=== PATIENT | male | born 1935 | race Caucasian/White ===

== ENCOUNTER → 2018-02-06 10:38 | Outpatient (CLI) | payer MEDICARE, OTHER, SELFPAY ==
[2018-02-06 12:05] LABS: Creatinine Urine Random 258.4 mg/dL
[2018-02-06 12:09] LABS: Microalbumi Creatinin Ratio Ur 21.2 ug/mg CR (<30); Microalbumin Urine Random 5.5 mg/dL (0-1.6)
[2018-02-06 12:19] LABS: Add Manual Diff / Slide Review NO; Basophils Percent Auto 0.6 % (0-2); Eosinophils Percent Auto 4.7 % (2-4); Hemoglobin 15.8 g/dL (13.5-17.5); Lymphocytes Percent Auto 36.6 % (25-40); Mean Corpuscular Hemoglobin 32.3 PG (26-34); Mean Corpuscular Volume 92.1 fL (80-100); Monocytes Percent Auto 7.3 % (3-14); Neutrophils Absolute Auto 3100 /uL (3000-5900); Neutrophils Percent Auto 50.8 % (50-75); Platelet Count 153 X10^3/uL (150-400); Red Blood Cell Count 4.88 X10^6/uL (4.5-5.9); Red Cell Distribution Width 13.5 % (11.6-14.8); White Blood Cell Count 6.2 X10^3/uL (4.5-11.0)
[2018-02-06 12:49] LABS: Alanine Aminotransferase 30 IU/L (21-72); Albumin 4.1 g/dL (3.5-5.0); Albumin Globulin Ratio 1.4 (1.0-2.8); Alkaline Phosphatase 48 U/L (38-126); Aspartate Aminotransferase 24 IU/L (17-59); Bilirubin Total 1.3 mg/dL (0.2-1.3); Blood Urea Nitrogen 18 mg/dL (9-20); Calcium 9.3 mg/dL (8.4-10.2); Carbon Dioxide 30 mmol/L (22-32); Chloride 100 mmol/L (98-107); Cholesterol 120 mg/dL (140-199); Estimated Glomerular Filt Rate > 60.0 mL/min (>60); Glucose 211 mg/dL (80-110); HDL Cholesterol 36 mg/dL (40-60); HEMOLYSIS 16 (0-50); Hemoglobin A1C% w Est Avg Glu 7.9 % (4.0-6.0); LDL Cholesterol Calculated 43 mg/dL (<100); Potassium 4.1 mmol/L (3.4-5.1); Sodium 142 mmol/L (137-145); Total Protein 7.1 g/dL (6.3-8.2); Triglycerides 206 mg/dL (35-150)
== END ==
PROVIDERS: Family Provider Family Medicine; PCP Family Medicine; Visit Provider Family Medicine
DX: I10 Essential (primary) hypertension (principal); E11.9 Type 2 diabetes mellitus without complications; E78.00 Pure hypercholesterolemia, unspecified
CPT/HCPCS: 36415; 80053; 80061; 82043; 82570; 83036; 85025

== ENCOUNTER → 2018-07-27 15:38 | Outpatient (CLI) | payer MEDICARE, OTHER, SELFPAY ==
[2018-07-27 16:30] LABS: BUN Creatinine Ratio 21.1 (6-22); Blood Urea Nitrogen 19 mg/dL (9-20); Calcium 9.6 mg/dL (8.4-10.2); Carbon Dioxide 28 mmol/L (22-32); Chloride 101 mmol/L (98-107); Estimated Glomerular Filt Rate > 60.0 mL/min (>60); Glucose 166 mg/dL (80-110); HEMOLYSIS < 15 (0-50); Potassium 4.2 mmol/L (3.4-5.1); Sodium 143 mmol/L (137-145)
[2018-07-27 17:37] LABS: Vitamin D 25 Hydroxy (D3) 59.6 ng/mL (30.0-100.0)
== END ==
PROVIDERS: Visit Provider Student in an Organized Health Care Education/Training Program
DX: E11.9 Type 2 diabetes mellitus without complications (principal); E55.9 Vitamin D deficiency, unspecified; I10 Essential (primary) hypertension
CPT/HCPCS: 36415; 80048; 82306; 83036

== ENCOUNTER → 2019-01-25 13:34 | Outpatient (CLI) | payer MEDICARE, OTHER, SELFPAY ==
[2019-01-25 14:55] LABS: Add Manual Diff / Slide Review NO; Basophils Absolute Auto 0 /uL (0-100); Basophils Percent Auto 0.8 % (0-2); Eosinophils Absolute Auto 300 /uL (0-450); Eosinophils Percent Auto 5.5 % (2-4); Hematocrit 42.6 % (41-53); Hemoglobin 14.9 g/dL (13.5-17.5); Lymphocytes Absolute Auto 1800 /uL (1100-4500); Lymphocytes Percent Auto 29.7 % (25-40); Mean Corpuscular Hemoglobin 32.7 PG (26-34); Mean Corpuscular Volume 93.4 fL (80-100); Monocytes Absolute Auto 400 /uL (0-900); Monocytes Percent Auto 7.1 % (3-14); Neutrophils Absolute Auto 3500 /uL (1500-7000); Neutrophils Percent Auto 56.9 % (50-75); Platelet Count 169 X10^3/uL (150-400); Red Blood Cell Count 4.56 X10^6/uL (4.5-5.9); Red Cell Distribution Width 14.1 % (11.6-14.8); White Blood Cell Count 6.1 X10^3/uL (4.5-11.0)
[2019-01-25 15:06] LABS: Alanine Aminotransferase 23 IU/L (21-72); Albumin 4.4 g/dL (3.5-5.0); Albumin Globulin Ratio 1.4 (1.0-2.8); Alkaline Phosphatase 50 U/L (38-126); Aspartate Aminotransferase 20 IU/L (17-59); BUN Creatinine Ratio 17.5 (6-22); Bilirubin Total 0.9 mg/dL (0.2-1.3); Blood Urea Nitrogen 14 mg/dL (9-20); Calcium 9.6 mg/dL (8.4-10.2); Carbon Dioxide 29 mmol/L (22-32); Chloride 99 mmol/L (98-107); Creatine Kinase 39 U/L (55-170); Estimated Glomerular Filt Rate > 60.0 mL/min (>60); Globulin 3.1 g/dL (1.7-4.1); Glucose 267 mg/dL (80-110); HEMOLYSIS 17 (0-50); Potassium 4.4 mmol/L (3.4-5.1); Sodium 140 mmol/L (137-145); Total Protein 7.5 g/dL (6.3-8.2)
[2019-01-25 15:09] LABS: Hemoglobin A1C% w Est Avg Glu 6.5 % (4.0-6.0)
[2019-01-25 16:05] LABS: Creatinine Urine Random 87.7 mg/dL
[2019-01-25 16:08] LABS: Microalbumi Creatinin Ratio Ur 15.9 ug/mg CR (<30); Microalbumin Urine Random 1.4 mg/dL (0-1.6)
== END ==
PROVIDERS: PCP Student in an Organized Health Care Education/Training Program; Visit Provider Student in an Organized Health Care Education/Training Program
DX: E11.9 Type 2 diabetes mellitus without complications (principal); R10.9 Unspecified abdominal pain
CPT/HCPCS: 36415; 80053; 82043; 82550; 82570; 83036; 85025

== ENCOUNTER → 2019-02-06 15:32 | Outpatient (CLI) | payer MEDICARE, OTHER, SELFPAY ==
--- NOTE | 2019-02-06 15:35 | DI.CT.S_ITS ---
PROCEDURE: CT ABDOMEN PELVIS WO CON INDICATIONS: Flank pain TECHNIQUE: Noncontrast 5 mm thick sections acquired from the diaphragms to the symphysis. 5 mm thick coronal and sagittal reformats were then performed. For radiation dose reduction, the following was used: automated exposure control, adjustment of mA and/or kV according to patient size. COMPARISON: None. FINDINGS: Image quality: Excellent. Lung bases: Lung bases are clear. Heart size is normal. Coronary artery calcifications. Urinary system: Both kidneys are normal in size. Several small nonobstructing renal catheter bilaterally. A cluster of stones at the inferior pole the kidney measures 1.1 cm, (2/33), and the largest on the right are punctate. No hydronephrosis. A left kidney peripelvic cyst measuring of 4.8 cm, (2/). Both ureters appear non-dilated throughout their expected courses. Bladder wall thickness is normal; no calcified bladder stones. Few phleboliths in the pelvis. Other solid organs: Liver is normal in size. Simple cyst in the left lobe. Gallbladder is unremarkable. No calcified gallstones. Pancreas is normal in contours. Spleen is normal in size. No adrenal nodules. Peritoneum and bowel: Unenhanced bowel loops demonstrate normal wall thickness and caliber. Moderate sigmoid colon diverticulosis. The appendix is normal. No free fluid or air. Nodes and vessels: No retroperitoneal or mesenteric adenopathy by size criteria. Aorta and inferior vena cava are normal in caliber. Moderate calcified atherosclerotic plaque. Abdominal wall: No ventral hernias. Pelvis: No free pelvic fluid. Fat containing left inguinal hernia. Bones: No suspicious bony lesions. No vertebral body compression fractures. Mild scoliosis and moderate DDD. IMPRESSION: 1. No abnormality identified to explain the patient's flank pain. No acute inflammatory process. 2. Nonobstructing calculi bilaterally. 3. Incidental left peripelvic cyst. Dictated by: Luis Ayala M.D. on 02/06/2019 at 16:25 Approved by: Luis Ayala M.D. on 02/06/2019 at 16:37
== END ==
PROVIDERS: PCP Student in an Organized Health Care Education/Training Program; Visit Provider Student in an Organized Health Care Education/Training Program
DX: R10.9 Unspecified abdominal pain (principal); N20.0 Calculus of kidney; N28.1 Cyst of kidney, acquired
CPT/HCPCS: 74176

== ENCOUNTER 2019-02-13 10:50 | Emergency (ER) | payer MEDICARE, OTHER, SELFPAY ==
--- NOTE | 2019-02-13 10:58 | ED.BACK ---
HPI - Back Pain/Injury General Chief Complaint: Urogenital-Male Stated Complaint: pain around kidney area Time Seen by Provider: 02/13/19 10:58 Source: patient and family Mode of arrival: ambulatory Limitations: no limitations History of Present Illness HPI Narrative: Patient comes emergency department complaining of low back pain. This has been going on for the past couple of months, and patient has actually been seen by his primary care physician for this. He states that he had blood work and a CT recently, and that the pain just does not seem to be going away. Patient states he is just taking ibuprofen at home for this. He denies any fevers or chills. No recent fall or other injury. He denies any change in the character of pain. No abdominal pain. No nausea or vomiting. No chest pain or shortness of breath. Patient states that he does not feel ill necessarily. No other complaints at this time. No numbness or tingling in the patient's legs. No lower extremity weakness. Related Data Previous Rx's Medication Instructions Recorded folic acid 1 mg PO QDAY #90 tab 06/29/17 dabigatran etexilate 150 mg capsule 150 mg PO BID #370 cap 10/09/18 glipizide ER 5 mg tablet, extended 5 mg PO QDAY #185 tab 10/09/18 release 24 hr lisinopril 2.5 mg tablet 2.5 mg PO HS #185 tab 10/09/18 metformin 500 mg tablet 1,000 mg PO BIDCC #730 tab 10/09/18 metoprolol succinate ER 50 mg 50 mg PO BID #370 tab 10/09/18 tablet,extended release 24 hr atorvastatin 20 mg tablet 10 mg PO QHS 90 Days #45 tab 01/25/19 lovastatin 20 mg tablet 20 mg PO QPM #90 tab 01/25/19 hydrocodone-acetaminophen 1 tab PO Q6H PRN #14 tab 02/13/19 methylprednisolone [Medrol ([place])] See Rx Instructions .ROUTE 02/13/19 .COMPLEX #21 each Allergies Allergy/AdvReac Type Severity Reaction Status Date / Time No Known Drug Allergies Allergy Verified 02/13/19 11:03 Review of Systems Constitutional Denies chills, Denies fever(s), Denies lethargy and Denies weakness Eyes Denies change in vision, Denies eye discharge, Denies irritation and Denies loss of vision ENT Ears, Nose, Mouth, and Throat: Denies change in voice, Denies neck pain and Denies sore throat Cardiovascular Denies chest pain, Denies irregular heart rhythm, Denies lightheadedness, Denies palpitations, Denies dyspnea, Denies dyspnea on exertion and Denies orthopnea Respiratory Denies cough, Denies dyspnea, Denies dyspnea on exertion and Denies wheezing Gastrointestinal Gastrointestinal: Denies abdominal pain, Denies change in bowel habits, Denies diarrhea, Denies nausea and Denies vomiting Genitourinary Denies hematuria, Denies flank pain, Denies urinary incontinence and Denies urinary urgency Musculoskeletal Reports back pain and Denies neck pain Integumentary/Breasts Denies pruritus, Denies erythema, Denies rash and Denies wounds Neurologic Denies confusion, Denies loss of vision and Denies weakness Psychiatric Denies anxiety, Denies confusion, Denies depression, Denies homicidal ideation and Denies suicidal ideation Endocrine Denies palpitations Hematologic/Lymphatic Denies easy bruising Allergic/Immunologic Denies wheezing [facility] Medical History Atrial fibrillation (Chronic Unknown) Stroke (Resolved Unknown) Hearing loss (Chronic Unknown) Cataracts, bilateral (Chronic Unknown) Diabetes (Chronic Unknown) Hyperlipemia (Chronic Unknown) Hypertension (Chronic Unknown) Essential hypertension (Chronic 07/18/16) History of stroke (Chronic 07/18/16) Pure hypercholesterolemia (Chronic 07/18/16) Chronic atrial fibrillation (Chronic 11/01/16) Type 2 diabetes mellitus without complication, without long-term current use of insulin (Chronic 02/09/17) Surgical History No history of previous surgery (Chronic) Family History Mother No problems noted. Social History Smoking Status: Current every day smoker Family History Mother No problems noted. Social History Smoking Status: Current every day smoker Exam Initial Vital Signs Initial Vital Signs: Vital Signs Temperature 97.7 F 02/13/19 11:03 Pulse Rate 91 H 02/13/19 11:03 Respiratory Rate 20 02/13/19 11:03 Blood Pressure 123/81 02/13/19 11:03 Pulse Oximetry 100 02/13/19 11:03 Const General: cooperative and well developed Nutritional Appearance: well nourished Orientation: alert, awake, oriented x3 and not confused [facility] Head: normocephalic and atraumatic Ears: external ears normal Nose: external nose normal and No nasal discharge Face and sinus: face symmetric and No dry mucous membranes Mouth: oral mucosae normal and moist mucous membranes Teeth and gingiva: dentition normal Eyes General: appearance normal, both eyes and all related structures Eyelids: eyelids normal Conjunctivae: conjunctivae normal Sclera: sclerae normal Pupils: PERRL EOM: EOM intact bilaterally Neck Neck: normal visual inspection, trachea midline, No lymphadenopathy, No midline deformity and No JVD Lymphatic: No lymphedema Chest Chest: normal inspection of the chest Resp Effort & Inspection: normal respiratory effort, able to speak in complete sentences, no respiratory distress and no use of accessory muscles Auscultation: clear to auscultation bilaterally, no rales, no rhonchi and no wheezes Cardio Rate: regular rate Rhythm: regular rhythm Heart Sounds: no click, no gallops, no murmurs and no rubs Pulses: normal peripheral pulses GI Inspection: non-distended Palpation: soft, no hepatosplenomegaly, No guarding, No pulsatile mass and No tender Auscultation: normal bowel sounds Back/Spine/Pelvis Back: No CVA tenderness Cervical Spine: cervical ROM normal and No pain with cervical ROM Thoracic/Lumbar Spine: thoracic and lumbar spine normal to inspection Other: Patient has mild bilateral lumbar paraspinal muscular tenderness. Skin General: no rashes or lesions noted, No jaundice and No petechiae Neuro General: alert, oriented x3, gait normal and no focal motor deficits Speech: speech normal Extrem General: full ROM, no clubbing, cyanosis or edema, no pedal edema and no calf tenderness Psych Appearance: well kempt Mental Status: mental status grossly normal Attitude: cooperative Thought Content: normal and suicidality Judgment: judgment good Course Course Narrative: I reviewed the patient's records, and found that the patient had an unremarkable CT scan of the abdomen and pelvis on February 06, and that labs about 2 weeks before that were also unremarkable, other than an elevated glucose. I discussed with the patient that the next step in the workup would be an MRI of his low spine. The patient states that he gets very claustrophobic an MRI, and I discussed with him that he will need to talk to his doctor about having some kind of sedation for the procedure then. I have discussed with the patient that there is no indication for an emergent MRI today. The patient could most likely use more aggressive pain management at home, and we have discussed this possibility. Patient has been given doses of Toradol, prednisone, and Vicodin in the emergency department. His granddaughter is with him to drive him home. The patient is able to stand without difficulty and ambulates slowly but steadily. At his granddaughter's request, I will prescribed a walker for him so that he is able to get around with a little more support. Granddaughter has also asked for handicap does ignition, but I have explained to her that his primary care physician will need to do this for him. We have called Dr. Fairbanks is office, and the patient has been given an appointment for 05 29 tomorrow morning, for follow-up of the above issues. Orders Ordered: Discontinued Medications Hydrocodone Bitart/Acetaminophen ([place] 5/325) 1 tab PO NOW ONE Stop: 02/13/19 11:17 Ketorolac Tromethamine (Toradol) 60 mg IM NOW ONE Stop: 02/13/19 11:17 Prednisone (Deltasone) 60 mg PO NOW ONE Stop: 02/13/19 11:17 Vital Signs - 8 hr 02/13/19 11:03 Temperature 97.7 F Pulse Rate 91 H Respiratory Rate 20 Blood Pressure 123/81 Pulse Oximetry 100 MDM - Back Pain/Injury Medical Records Attestation: I reviewed the patient's medical records. Discharge Plan Departure Patient Disposition: Home Clinical Impression: Acute exacerbation of chronic low back pain Instructions: DI for Low Back Pain Activity Restrictions/Additional Instructions: Your labs and CT scan were unremarkable. The next step in workup of a problem like this would be an MRI of your spine. We have contacted your primary doctor's office, and made an appointment for you for tomorrow morning at 10:15 a.m.. You can discuss with them the possibility of getting an MRI with sedation, if needed, and also, the issue of possibly getting a handicap parking pass. Please take the medications prescribed, as needed for pain. Prescriptions: New hydrocodone-acetaminophen 5-325 mg tablet 1 tab PO Q6H PRN (Reason: pain) Qty: 14 RF: 0 methylprednisolone [Medrol ([place])] 4 mg tablets,dose pack See Rx Instructions .ROUTE .COMPLEX Qty: 21 RF: 0 No Action folic acid 1 MG tablet 1 mg PO QDAY Qty: 90 RF: 3 Pradaxa 150 mg capsule 150 mg PO BID Qty: 370 RF: 0 glipizide [Glucotrol XL] 5 mg tablet extended release 24hr 5 mg PO QDAY Qty: 185 RF: 0 lisinopril 2.5 mg tablet 2.5 mg PO HS Qty: 185 RF: 0 metformin [Glucophage] 500 mg tablet 1,000 mg PO BIDCC Qty: 730 RF: 0 metoprolol succinate 50 mg tablet extended release 24 hr 50 mg PO BID Qty: 370 RF: 0 lovastatin 20 mg tablet 20 mg PO QPM Qty: 90 RF: 1 atorvastatin [Lipitor] 20 mg tablet 10 mg PO QHS 90 Days Qty: 45 RF: 0 Referrals: Luis Woodard MD [Primary Care Provider] - (Please come for your 10:15 appointment tomorrow morning to Dr. Woodard's office.)
[2019-02-13 11:03] VITALS: BP 123/81; PULSE 91; RESP 20; TEMP 36.5; O2SAT 100; BMI 28.8
--- NOTE | 2019-02-13 11:12 | PC.NURSE ---
pt describes jah mid to lower back pain.
[2019-02-13] MEDS: KETOROLAC 60 MG/2 ML VIAL IM (11:30)
[2019-02-13] MEDS: HYDROCODONE/ACET 5/325 TABLET 1 TAB PO (11:30)
[2019-02-13] MEDS: predniSONE 20 MG TABLET 60 MG PO (11:31)
[2019-02-13 12:28] VITALS: BP 94/61; PULSE 73; RESP 18; O2SAT 98
== END 2019-02-13 12:28 | disposition home or self-care (01) ==
PROVIDERS: Emergency Provider Emergency Medicine; PCP Student in an Organized Health Care Education/Training Program
DX: M54.5 Low back pain (principal)
CPT/HCPCS: 96372; 99282; 99283; J1885

== ENCOUNTER 2019-02-27 09:30 | Outpatient (RCR) | payer MEDICARE, OTHER, SELFPAY ==
--- NOTE | 2019-02-20 09:30 | PT.OPPOC ---
Current Diagnoses Other chronic pain (02/20/19) Stiffness of unspecified joint, not elsewhere classified (02/20/19) Low back pain (02/20/19) Weakness (02/20/19) Provider Visit Care Team Role Provider Type Luis Woodard MD Attending Provider Physician Primary Care Provider Specialty: Internal Medicine Address: [address] [place] [address], [id number] Email: Plan Of Care PT-OP-T Assessment and Plan Start: 02/20/19 08:06 Freq: Status: Active Protocol: Document 02/20/19 09:30 SAK (Rec: 02/24/19 16:42 SAK [id number]) Physical Therapy Assessment Rehab Potential Rehabilitation Potential Good Evaluation Complexity Number of Personal Factors/Comorbidities 1-2 Number of Body Systems Impaired 3 Clinical Presentation at Evaluation Evolving Impairments Impairments Activity Tolerance Pain ROM Strength Other Concerns Barriers to Rehabilitation patient CITIZEN [place], has PMH of DMII and CVA Goals 3 Impairment activity tolerance Short Term Goal (STG) Patient will be able to resume daily household activities without an increase in pain STG Duration 04/23/19 Transportation Maintenance Worker Goal (LTG) Patient will be able to resume gardening without an increase in pain LTG Duration 04/23/19 2 Impairment decreased flexibility and strength jah core and hips Short Term Goal (STG) Patient will be instructed in a HEP to address above impairments STG Duration 03/23/19 [facility] Goal (LTG) Patient will be independent and compliant with HEP and demonstrate improvements in flexibility and strength LTG Duration 04/23/19 1 Impairment pain 6/10 Short Term Goal (STG) Decrease pain to no greater than 4/10 STG Duration 03/23/19 Transportation Maintenance Worker Goal (LTG) Decrease pain to no greater than 2/10 LTG Duration 04/23/19 Assessment Summary Assessment Patient presents with function -limiting pain bilateral hips and low back concentrated primarily in superior aspect of his iliac crests. He has significant weakness and decreased flexibility throughout his trunk and hips which appears to be highly contributory. He reported decrease in pain with the use of moist heat today and his grandaughter stated she would help him obtain a new heating pad to try at home. I started him on a few exercises for gentle ROM and flexibility and issued a written handout. He would benefit from skilled physical therapy to address his impairments through therapeutic exercise, modalities and manual therapy as indicated for pain management. Physical Therapy Plan Frequency and Duration Frequency of Treatment 2x/Week Duration of Treatment 8 Plan of Care Start Date 02/20/19 Plan of Care End Date 04/23/19 Therapeutic Interventions Therapeutic Interventions Aquatic Therapy Home Exercise Program Manual Therapy Patient/Caregiver Education Self-Care/Home Management Soft Tissue Mobilization Taping Therapeutic Activities Therapeutic Exercises Modalities Cold Pack/Ice Massage Electric Stimulation Hot Packs Traction- Mechanical Ultrasound Next Visit Focus/Plan Next Note Type Treatment Note Next Visit Plan Review HEP, progress therapeutic exercise program for flexibility and strengthening, and end with moist heat. Plan of Care Dates Plan of Care Start Date 02/20/19 Plan of Care End Date 04/23/19 Please Sign and Return: I have reviewed this Plan of Care and certify that the skilled therapy services above are required to meet the patient?s needs. Physician Signature Date Printed Name and Credentials Clinical Instructor Signature Printed Name and Credentials
--- NOTE | 2019-02-20 09:30 | PT.OIE ---
Current Diagnoses Other chronic pain (02/20/19) Stiffness of unspecified joint, not elsewhere classified (02/20/19) Low back pain (02/20/19) Weakness (02/20/19) Past Medical History (Last Reviewed 02/13/19 @ 11:20 by Gwen Villafana MD) Atrial fibrillation (Chronic Unknown) Stroke (Resolved Unknown) Hearing loss (Chronic Unknown) Cataracts, bilateral (Chronic Unknown) Diabetes (Chronic Unknown) Hyperlipemia (Chronic Unknown) Hypertension (Chronic Unknown) Essential hypertension (Chronic 07/18/16) History of stroke (Chronic 07/18/16) Pure hypercholesterolemia (Chronic 07/18/16) Chronic atrial fibrillation (Chronic 11/01/16) Type 2 diabetes mellitus without complication, without long-term current use of insulin (Chronic 02/09/17) Past Surgical History (Last Reviewed 02/13/19 @ 11:20 by Gwen Villafana MD) No history of previous surgery (Chronic) Provider Visit Care Team Role Provider Type Luis Woodard MD Attending Provider Physician Primary Care Provider Specialty: Internal Medicine Address: [address] [place] [address] Email: Physical Therapy Initial Evaluation PT-OP-A Visit Information Start: 02/20/19 08:06 Freq: Status: Active Protocol: Document 02/20/19 09:30 [facility] (Rec: 02/22/19 09:28 [facility] [id number]) Out-Patient Physical Therapy Visit Information Visit Information Visit Type Initial Evaluation Visit Start Time 09:30 Visit Stop Time 10:25 Total Visit Minutes 55 Visit Number 1 Number of ONCOLOGY COORDINATOR Visits 0 PT-OP-B Current Condition Start: 02/20/19 08:06 Freq: Status: Active Protocol: Document 02/20/19 09:30 [facility] (Rec: 02/22/19 09:28 [facility] [id number]) Current Condition History of Current Condition Onset Date 2 months Current Complaints bilateral lateral hip pain History of Current Condition Presents to PT with function- limiting pain bilateral lateral hips, no known fall or other trauma. No imaging studies. Reports gradual onset of pain but due to pain at this time reports I can't do anything. Patient lives alone and typically able to perform housework and yardwork without pain. At this time reports increased pain with movement, decreases some with rest and Tylenol. Treatment Goals Patient/Caregiver Goals Decrease pain to allow him to perform his usual daily activities including housework and yardwork. Prior Functional Status Baseline Function- ADL's Independent Baseline Function- Mobility Independent Baseline Function- Gait independent no device. Personal Factors Other Personal Factors That May Effect Patient doesn't do any regular Therapy/Recovery exercises. PT-OP-C Subjective Start: 02/20/19 08:06 Freq: Status: Active Protocol: Document 02/20/19 09:30 [facility] (Rec: 02/24/19 16:42 [facility] [id number]) Patient Questionnaires Oswestry Low Back Index Oswestry Score 68 OP-PT Pain Assessment Pain Assessment Grid Paper Pain Assessment Grid Completed Yes Location bilateral hips and lumbar region Intensity 6 Description Aching Pressure Tender Tightness Pain Aggravating Factors ADL's Activity Pain Alleviating Factors Medication Home Pain Medication Use Pain Medications Used Yes Home Pain Medication Frequency q6hrs Pain Behaviors Pain Behaviors Facial Grimacing Guarding Wincing PT-OP-G Mobility & Gait Start: 02/20/19 08:06 Freq: Status: Active Protocol: Document 02/20/19 09:30 [facility] (Rec: 02/24/19 16:42 [facility] [id number]) OP Mobility Evaluation Bed Mobility Rolling independent but painful Supine to and from Sit independent but painful Transfers Sit to Stand independent but painful Functional Movements Lifting and Carrying not currently doing due to paion Squats painful Running Assessment unable OP Gait Assessment Gait Gait Assistance Required: Independent Distance (Feet) 100 Assistive Devices Assistive Device None Gait Deviations General Gait Pattern Decreased Stride Length Decreased Feet Clearance Flexed Trunk Lateral Trunk Lean Factors Limiting Gait Function Factors Limiting Gait Function Pain Stair Climbing Evaluation Evaluation Level of Assist On Stairs Independent Devices Stair Climbing Assistive Devices Left Railing Right Railing Technique/Endurance Stair Climbing Direction Ascend and Descend Stair Climbing Technique Step Over Step Comments Stair Climbing Comments c/o pain PT-OP-J Posture/Palpation/Skin Start: 02/20/19 08:06 Freq: Status: Active Protocol: Document 02/20/19 09:30 [facility] (Rec: 02/24/19 16:42 [facility] [id number]) Posture Evaluation Position Standing Head/C-Spine Posture Forward Head T-Spine Posture Increased Kyphosis L-Spine Posture Flattened Palpation Assessment Location greater trochanters Palpation Location jah denied pain bilateral lumbar paraspinals Palpation Findings Soft Tissue Tightness Tenderness PT-OP-K Range of Motion Start: 02/20/19 08:06 Freq: Status: Active Protocol: Document 02/20/19 09:30 [facility] (Rec: 02/24/19 16:42 [facility] [id number]) Lumbar Spine Range of Motion Lumbar Spine Active ROM Limitations Soft Tissue Tightness Pain Comments Moderate decrease all motions with c/o stiffness and pain Hip Goniometric Range of Motion Hip Left Hip ROM WFL No Testing Position Supine Flexion w/Knee Flexed 95 Straight Leg Raise 40 Extension 15 Abduction 20 Internal Rotation 50 right Hip ROM WFL No Testing Position Supine Flexion w/Knee Flexed 95 Straight Leg Raise 45 Extension 0 Abduction 15 Internal Rotation 10 External Rotation 45 Hip ROM Limitations Hip ROM Limitations Soft Tissue Tightness Comments mod tightness bilateral quadriceps and IT bands Knee Goniometric Range of Motion Knee jah Knee ROM WFL Yes Ankle and Foot Goniometric Range of Motion Ankle and Foot jah Dorsiflexion with Knee Flexed 0 PT-OP-M Strength Start: 02/20/19 08:06 Freq: Status: Active Protocol: Document 02/20/19 09:30 [facility] (Rec: 02/24/19 16:42 [facility] [id number]) Trunk Strength Trunk Manual Muscle Testing Testing Position Supine Flexion 3- Fair- Extension 3- Fair- Hip Strength Hip Manual Muscle Testing jah Flexion (L2) 4 Good Extension (S1) 3- Fair- Abduction 3+ Fair+ Adduction 3+ Fair+ External Rotation 3+ Fair+ Internal Rotation 4- Good- Comments c/o pain with all resisted motions Knee Strength Knee Manual Muscle Testing jah Flexion (S2) 4 Good Extension (L3) 4 Good PT-OP-Q Treatments Start: 02/20/19 08:06 Freq: Status: Active Protocol: Document 02/20/19 09:30 [facility] (Rec: 02/24/19 16:42 [facility] [id number]) Self-Care/Home Management Treatment Education Patient Education Home Exercise Program Pain Management Other Education issued written HEP PT-OP-R Modalities Start: 02/20/19 08:06 Freq: Status: Active Protocol: Document 02/20/19 09:30 [facility] (Rec: 02/24/19 16:42 [facility] [id number]) Hot Pack/Cold Pack Treatment Hot Pack Location lumbar paraspinals and hips Patient Position Hooklying Treatment Duration (minutes) 15 Patient Tolerance Good PT-OP-T Assessment and Plan Start: 02/20/19 08:06 Freq: Status: Active Protocol: Document 02/20/19 09:30 [facility] (Rec: 02/24/19 16:42 [facility] [id number]) Physical Therapy Assessment Rehab Potential Rehabilitation Potential Good Evaluation Complexity Number of Personal Factors/Comorbidities 1-2 Number of Body Systems Impaired 3 Clinical Presentation at Evaluation Evolving Impairments Impairments Activity Tolerance Pain ROM Strength Other Concerns Barriers to Rehabilitation patient LAC COURTE OREILLES, has PMH of DMII and CVA Goals 3 Impairment activity tolerance Short Term Goal (STG) Patient will be able to resume daily household activities without an increase in pain STG Duration 04/23/19 Snf Goal (LTG) Patient will be able to resume gardening without an increase in pain LTG Duration 04/23/19 2 Impairment decreased flexibility and strength jah core and hips Short Term Goal (STG) Patient will be instructed in a HEP to address above impairments STG Duration 03/23/19 Emergency Management Specialist Goal (LTG) Patient will be independent and compliant with HEP and demonstrate improvements in flexibility and strength LTG Duration 04/23/19 1 Impairment pain 6/10 Short Term Goal (STG) Decrease pain to no greater than 4/10 STG Duration 03/23/19 Emergency Management Specialist Goal (LTG) Decrease pain to no greater than 2/10 LTG Duration 04/23/19 Assessment Summary Assessment Patient presents with function -limiting pain bilateral hips and low back concentrated primarily in superior aspect of his iliac crests. He has significant weakness and decreased flexibility throughout his trunk and hips which appears to be highly contributory. He reported decrease in pain with the use of moist heat today and his grandaughter stated she would help him obtain a new heating pad to try at home. I started him on a few exercises for gentle ROM and flexibility and issued a written handout. He would benefit from skilled physical therapy to address his impairments through therapeutic exercise, modalities and manual therapy as indicated for pain management. Physical Therapy Plan Frequency and Duration Frequency of Treatment 2x/Week Duration of Treatment 8 Plan of Care Start Date 02/20/19 Plan of Care End Date 04/23/19 Therapeutic Interventions Therapeutic Interventions Aquatic Therapy Home Exercise Program Manual Therapy Patient/Caregiver Education Self-Care/Home Management Soft Tissue Mobilization Taping Therapeutic Activities Therapeutic Exercises Modalities Cold Pack/Ice Massage Electric Stimulation Hot Packs Traction- Mechanical Ultrasound Next Visit Focus/Plan Next Note Type Treatment Note Next Visit Plan Review HEP, progress therapeutic exercise program for flexibility and strengthening, and end with moist heat.
--- NOTE | 2019-02-24 16:44 | PT.OIE ---
Current Diagnoses Other chronic pain (02/20/19) Stiffness of unspecified joint, not elsewhere classified (02/20/19) Low back pain (02/20/19) Weakness (02/20/19) Past Medical History (Last Reviewed 02/13/19 @ 11:20 by Gwen Villafana MD) Atrial fibrillation (Chronic Unknown) Stroke (Resolved Unknown) Hearing loss (Chronic Unknown) Cataracts, bilateral (Chronic Unknown) Diabetes (Chronic Unknown) Hyperlipemia (Chronic Unknown) Hypertension (Chronic Unknown) Essential hypertension (Chronic 07/18/16) History of stroke (Chronic 07/18/16) Pure hypercholesterolemia (Chronic 07/18/16) Chronic atrial fibrillation (Chronic 11/01/16) Type 2 diabetes mellitus without complication, without long-term current use of insulin (Chronic 02/09/17) Past Surgical History (Last Reviewed 02/13/19 @ 11:20 by Gwen Villafana MD) No history of previous surgery (Chronic) Provider Visit Care Team Role Provider Type Luis Woodard MD Attending Provider Physician Primary Care Provider Specialty: Internal Medicine Address: [address] [place] [address] Email: Physical Therapy Initial Evaluation PT-OP-A Visit Information Start: 02/20/19 08:06 Freq: Status: Active Protocol: Document 02/20/19 09:30 [facility] (Rec: 02/22/19 09:28 [facility] [id number]) Out-Patient Physical Therapy Visit Information Visit Information Visit Type Initial Evaluation Visit Start Time 09:30 Visit Stop Time 10:25 Total Visit Minutes 55 Visit Number 1 Number of HEAD PASTRY CHEF Visits 0 PT-OP-B Current Condition Start: 02/20/19 08:06 Freq: Status: Active Protocol: Document 02/20/19 09:30 [facility] (Rec: 02/22/19 09:28 [facility] [id number]) Current Condition History of Current Condition Onset Date 2 months Current Complaints bilateral lateral hip pain History of Current Condition Presents to PT with function- limiting pain bilateral lateral hips, no known fall or other trauma. No imaging studies. Reports gradual onset of pain but due to pain at this time reports I can't do anything. Patient lives alone and typically able to perform housework and yardwork without pain. At this time reports increased pain with movement, decreases some with rest and Tylenol. Treatment Goals Patient/Caregiver Goals Decrease pain to allow him to perform his usual daily activities including housework and yardwork. Prior Functional Status Baseline Function- ADL's Independent Baseline Function- Mobility Independent Baseline Function- Gait independent no device. Personal Factors Other Personal Factors That May Effect Patient doesn't do any regular Therapy/Recovery exercises. PT-OP-C Subjective Start: 02/20/19 08:06 Freq: Status: Active Protocol: Document 02/20/19 09:30 [facility] (Rec: 02/24/19 16:42 [facility] [id number]) Patient Questionnaires Oswestry Low Back Index Oswestry Score 68 OP-PT Pain Assessment Pain Assessment Grid Paper Pain Assessment Grid Completed Yes Location bilateral hips and lumbar region Intensity 6 Description Aching Pressure Tender Tightness Pain Aggravating Factors ADL's Activity Pain Alleviating Factors Medication Home Pain Medication Use Pain Medications Used Yes Home Pain Medication Frequency q6hrs Pain Behaviors Pain Behaviors Facial Grimacing Guarding Wincing PT-OP-G Mobility & Gait Start: 02/20/19 08:06 Freq: Status: Active Protocol: Document 02/20/19 09:30 [facility] (Rec: 02/24/19 16:42 [facility] [id number]) OP Mobility Evaluation Bed Mobility Rolling independent but painful Supine to and from Sit independent but painful Transfers Sit to Stand independent but painful Functional Movements Lifting and Carrying not currently doing due to paion Squats painful Running Assessment unable OP Gait Assessment Gait Gait Assistance Required: Independent Distance (Feet) 100 Assistive Devices Assistive Device None Gait Deviations General Gait Pattern Decreased Stride Length Decreased Feet Clearance Flexed Trunk Lateral Trunk Lean Factors Limiting Gait Function Factors Limiting Gait Function Pain Stair Climbing Evaluation Evaluation Level of Assist On Stairs Independent Devices Stair Climbing Assistive Devices Left Railing Right Railing Technique/Endurance Stair Climbing Direction Ascend and Descend Stair Climbing Technique Step Over Step Comments Stair Climbing Comments c/o pain PT-OP-J Posture/Palpation/Skin Start: 02/20/19 08:06 Freq: Status: Active Protocol: Document 02/20/19 09:30 [facility] (Rec: 02/24/19 16:42 [facility] [id number]) Posture Evaluation Position Standing Head/C-Spine Posture Forward Head T-Spine Posture Increased Kyphosis L-Spine Posture Flattened Palpation Assessment Location greater trochanters Palpation Location jah denied pain bilateral lumbar paraspinals Palpation Findings Soft Tissue Tightness Tenderness PT-OP-K Range of Motion Start: 02/20/19 08:06 Freq: Status: Active Protocol: Document 02/20/19 09:30 [facility] (Rec: 02/24/19 16:42 [facility] [id number]) Lumbar Spine Range of Motion Lumbar Spine Active ROM Limitations Soft Tissue Tightness Pain Comments Moderate decrease all motions with c/o stiffness and pain Hip Goniometric Range of Motion Hip Left Hip ROM WFL No Testing Position Supine Flexion w/Knee Flexed 95 Straight Leg Raise 40 Extension 15 Abduction 20 Internal Rotation 50 right Hip ROM WFL No Testing Position Supine Flexion w/Knee Flexed 95 Straight Leg Raise 45 Extension 0 Abduction 15 Internal Rotation 10 External Rotation 45 Hip ROM Limitations Hip ROM Limitations Soft Tissue Tightness Comments mod tightness bilateral quadriceps and IT bands Knee Goniometric Range of Motion Knee jah Knee ROM WFL Yes Ankle and Foot Goniometric Range of Motion Ankle and Foot jah Dorsiflexion with Knee Flexed 0 PT-OP-M Strength Start: 02/20/19 08:06 Freq: Status: Active Protocol: Document 02/20/19 09:30 [facility] (Rec: 02/24/19 16:42 [facility] [id number]) Trunk Strength Trunk Manual Muscle Testing Testing Position Supine Flexion 3- Fair- Extension 3- Fair- Hip Strength Hip Manual Muscle Testing jah Flexion (L2) 4 Good Extension (S1) 3- Fair- Abduction 3+ Fair+ Adduction 3+ Fair+ External Rotation 3+ Fair+ Internal Rotation 4- Good- Comments c/o pain with all resisted motions Knee Strength Knee Manual Muscle Testing jah Flexion (S2) 4 Good Extension (L3) 4 Good PT-OP-Q Treatments Start: 02/20/19 08:06 Freq: Status: Active Protocol: Document 02/20/19 09:30 [facility] (Rec: 02/24/19 16:42 [facility] [id number]) Self-Care/Home Management Treatment Education Patient Education Home Exercise Program Pain Management Other Education issued written HEP PT-OP-R Modalities Start: 02/20/19 08:06 Freq: Status: Active Protocol: Document 02/20/19 09:30 [facility] (Rec: 02/24/19 16:42 [facility] [id number]) Hot Pack/Cold Pack Treatment Hot Pack Location lumbar paraspinals and hips Patient Position Hooklying Treatment Duration (minutes) 15 Patient Tolerance Good PT-OP-T Assessment and Plan Start: 02/20/19 08:06 Freq: Status: Active Protocol: Document 02/20/19 09:30 [facility] (Rec: 02/24/19 16:42 [facility] [id number]) Physical Therapy Assessment Rehab Potential Rehabilitation Potential Good Evaluation Complexity Number of Personal Factors/Comorbidities 1-2 Number of Body Systems Impaired 3 Clinical Presentation at Evaluation Evolving Impairments Impairments Activity Tolerance Pain ROM Strength Other Concerns Barriers to Rehabilitation patient KIVALINA, has PMH of DMII and CVA Goals 3 Impairment activity tolerance Short Term Goal (STG) Patient will be able to resume daily household activities without an increase in pain STG Duration 04/23/19 Group Home Goal (LTG) Patient will be able to resume gardening without an increase in pain LTG Duration 04/23/19 2 Impairment decreased flexibility and strength jah core and hips Short Term Goal (STG) Patient will be instructed in a HEP to address above impairments STG Duration 03/23/19 Gin Feeder Goal (LTG) Patient will be independent and compliant with HEP and demonstrate improvements in flexibility and strength LTG Duration 04/23/19 1 Impairment pain 6/10 Short Term Goal (STG) Decrease pain to no greater than 4/10 STG Duration 03/23/19 Gin Feeder Goal (LTG) Decrease pain to no greater than 2/10 LTG Duration 04/23/19 Assessment Summary Assessment Patient presents with function -limiting pain bilateral hips and low back concentrated primarily in superior aspect of his iliac crests. He has significant weakness and decreased flexibility throughout his trunk and hips which appears to be highly contributory. He reported decrease in pain with the use of moist heat today and his grandaughter stated she would help him obtain a new heating pad to try at home. I started him on a few exercises for gentle ROM and flexibility and issued a written handout. He would benefit from skilled physical therapy to address his impairments through therapeutic exercise, modalities and manual therapy as indicated for pain management. Physical Therapy Plan Frequency and Duration Frequency of Treatment 2x/Week Duration of Treatment 8 Plan of Care Start Date 02/20/19 Plan of Care End Date 04/23/19 Therapeutic Interventions Therapeutic Interventions Aquatic Therapy Home Exercise Program Manual Therapy Patient/Caregiver Education Self-Care/Home Management Soft Tissue Mobilization Taping Therapeutic Activities Therapeutic Exercises Modalities Cold Pack/Ice Massage Electric Stimulation Hot Packs Traction- Mechanical Ultrasound Next Visit Focus/Plan Next Note Type Treatment Note Next Visit Plan Review HEP, progress therapeutic exercise program for flexibility and strengthening, and end with moist heat.
--- NOTE | 2019-02-25 11:04 | PT.OTN ---
Current Diagnoses Other chronic pain (02/25/19) Stiffness of unspecified joint, not elsewhere classified (02/25/19) Low back pain (02/25/19) Weakness (02/25/19) Physical Therapy Treatment Note PT-OP-A Visit Information Start: 02/20/19 08:06 Freq: Status: Active Protocol: Document 02/25/19 10:58 [facility] (Rec: 02/25/19 11:04 [facility] [id number]) Out-Patient Physical Therapy Visit Information Visit Information Visit Type Treatment Note Visit Start Time 10:15 Visit Stop Time 11:10 Total Visit Minutes 55 Visit Number 2 Number of SHADE CLOTH FINISHER Visits 0 PT-OP-B Current Condition Start: 02/20/19 08:06 Freq: Status: Active Protocol: Document 02/20/19 09:30 [facility] (Rec: 02/22/19 09:28 [facility] [id number]) Current Condition History of Current Condition Onset Date 2 months Current Complaints bilateral lateral hip pain History of Current Condition Presents to PT with function- limiting pain bilateral lateral hips, no known fall or other trauma. No imaging studies. Reports gradual onset of pain but due to pain at this time reports I can't do anything. Patient lives alone and typically able to perform housework and yardwork without pain. At this time reports increased pain with movement, decreases some with rest and Tylenol. Treatment Goals Patient/Caregiver Goals Decrease pain to allow him to perform his usual daily activities including housework and yardwork. Prior Functional Status Baseline Function- ADL's Independent Baseline Function- Mobility Independent Baseline Function- Gait independent no device. Personal Factors Other Personal Factors That May Effect Patient doesn't do any regular Therapy/Recovery exercises. PT-OP-C Subjective Start: 02/20/19 08:06 Freq: Status: Active Protocol: Document 02/25/19 10:58 [facility] (Rec: 02/25/19 11:04 [facility] [id number]) OP-PT Subjective Patient Comments Patient Comments Patient reports he looked at the exercise handout but didn' t do them. Hips not as sore but having some back pain this am. PT-OP-G Mobility & Gait Start: 02/20/19 08:06 Freq: Status: Active Protocol: Document 02/20/19 09:30 [facility] (Rec: 02/24/19 16:42 [facility] [id number]) OP Mobility Evaluation Bed Mobility Rolling independent but painful Supine to and from Sit independent but painful Transfers Sit to Stand independent but painful Functional Movements Lifting and Carrying not currently doing due to paion Squats painful Running Assessment unable OP Gait Assessment Gait Gait Assistance Required: Independent Distance (Feet) 100 Assistive Devices Assistive Device None Gait Deviations General Gait Pattern Decreased Stride Length Decreased Feet Clearance Flexed Trunk Lateral Trunk Lean Factors Limiting Gait Function Factors Limiting Gait Function Pain Stair Climbing Evaluation Evaluation Level of Assist On Stairs Independent Devices Stair Climbing Assistive Devices Left Railing Right Railing Technique/Endurance Stair Climbing Direction Ascend and Descend Stair Climbing Technique Step Over Step Comments Stair Climbing Comments c/o pain PT-OP-J Posture/Palpation/Skin Start: 02/20/19 08:06 Freq: Status: Active Protocol: Document 02/20/19 09:30 [facility] (Rec: 02/24/19 16:42 [facility] [id number]) Posture Evaluation Position Standing Head/C-Spine Posture Forward Head T-Spine Posture Increased Kyphosis L-Spine Posture Flattened Palpation Assessment Location greater trochanters Palpation Location jah denied pain bilateral lumbar paraspinals Palpation Findings Soft Tissue Tightness Tenderness PT-OP-K Range of Motion Start: 02/20/19 08:06 Freq: Status: Active Protocol: Document 02/20/19 09:30 [facility] (Rec: 02/24/19 16:42 [facility] [id number]) Lumbar Spine Range of Motion Lumbar Spine Active ROM Limitations Soft Tissue Tightness Pain Comments Moderate decrease all motions with c/o stiffness and pain Hip Goniometric Range of Motion Hip Left Hip ROM WFL No Testing Position Supine Flexion w/Knee Flexed 95 Straight Leg Raise 40 Extension 15 Abduction 20 Internal Rotation 50 right Hip ROM WFL No Testing Position Supine Flexion w/Knee Flexed 95 Straight Leg Raise 45 Extension 0 Abduction 15 Internal Rotation 10 External Rotation 45 Hip ROM Limitations Hip ROM Limitations Soft Tissue Tightness Comments mod tightness bilateral quadriceps and IT bands Knee Goniometric Range of Motion Knee jah Knee ROM WFL Yes Ankle and Foot Goniometric Range of Motion Ankle and Foot jah Dorsiflexion with Knee Flexed 0 PT-OP-M Strength Start: 02/20/19 08:06 Freq: Status: Active Protocol: Document 02/20/19 09:30 [facility] (Rec: 02/24/19 16:42 [facility] [id number]) Trunk Strength Trunk Manual Muscle Testing Testing Position Supine Flexion 3- Fair- Extension 3- Fair- Hip Strength Hip Manual Muscle Testing jah Flexion (L2) 4 Good Extension (S1) 3- Fair- Abduction 3+ Fair+ Adduction 3+ Fair+ External Rotation 3+ Fair+ Internal Rotation 4- Good- Comments c/o pain with all resisted motions Knee Strength Knee Manual Muscle Testing jah Flexion (S2) 4 Good Extension (L3) 4 Good PT-OP-Q Treatments Start: 02/20/19 08:06 Freq: Status: Active Protocol: Document 02/25/19 10:58 [facility] (Rec: 02/25/19 11:04 [facility] [id number]) Cardio Equipment Recumbent Stepper (Sci-Fit) Duration (Minutes) 5 Resistance 1 Seat Position 11 Therapeutic Exercises Supine Exercises gluteal set Reps/Minutes 10x5 hamstring stretch Reps/Minutes 2x30 piriformis stretch Reps/Minutes 2x30 SKTC Reps/Minutes 2x30 lower trunk rotation Reps/Minutes 10x pelvic tilt Reps/Minutes 10x Standing Exercises hip abd Reps/Minutes 10x march Reps/Minutes 10x squats Reps/Minutes 10x heel raises, toe raises Reps/Minutes 10x ea Self-Care/Home Management Treatment Education Patient Education Home Exercise Program Pain Management Other Education added to HEP, encouraged to do exercises, obtain new hot pack PT-OP-R Modalities Start: 02/20/19 08:06 Freq: Status: Active Protocol: Document 02/25/19 10:58 [facility] (Rec: 02/25/19 11:04 [facility] [id number]) Hot Pack/Cold Pack Treatment Hot Pack Location lumbar paraspinals and hips Patient Position Hooklying Treatment Duration (minutes) 15 Patient Tolerance Good PT-OP-T Assessment and Plan Start: 02/20/19 08:06 Freq: Status: Active Protocol: Document 02/25/19 10:58 [facility] (Rec: 02/25/19 11:04 [facility] [id number]) Physical Therapy Assessment Other Concerns Barriers to Rehabilitation patient JENA, has PMH of DMII and CVA Goals 3 Impairment activity tolerance Short Term Goal (STG) Patient will be able to resume daily household activities without an increase in pain STG Duration 04/23/19 Customer Success Intern Goal (LTG) Patient will be able to resume gardening without an increase in pain LTG Duration 04/23/19 2 Impairment decreased flexibility and strength jah core and hips Short Term Goal (STG) Patient will be instructed in a HEP to address above impairments STG Duration 03/23/19 Skilled Nursing Goal (LTG) Patient will be independent and compliant with HEP and demonstrate improvements in flexibility and strength LTG Duration 04/23/19 1 Impairment pain 6/10 Short Term Goal (STG) Decrease pain to no greater than 4/10 STG Duration 03/23/19 Skilled Nursing Goal (LTG) Decrease pain to no greater than 2/10 LTG Duration 04/23/19 Assessment Summary Assessment mild c/o pain throughout session, reports he took Tylenol today. Not compliant to HEP or use of heat. Needs moderate cues for exercise performance. Physical Therapy Plan Frequency and Duration Frequency of Treatment 2x/Week Duration of Treatment 8 Plan of Care Start Date 02/20/19 Plan of Care End Date 04/23/19 Therapeutic Interventions Therapeutic Interventions Aquatic Therapy Home Exercise Program Manual Therapy Patient/Caregiver Education Self-Care/Home Management Soft Tissue Mobilization Taping Therapeutic Activities Therapeutic Exercises Modalities Cold Pack/Ice Massage Electric Stimulation Hot Packs Traction- Mechanical Ultrasound Next Visit Focus/Plan Next Note Type Treatment Note Next Visit Plan Review HEP, progress therapeutic exercise program for flexibility and strengthening, and end with moist heat. Consider ultrasound, manual therapy
--- NOTE | 2019-02-27 15:49 | PT.OTN ---
Current Diagnoses Other chronic pain (02/27/19) Stiffness of unspecified joint, not elsewhere classified (02/27/19) Low back pain (02/27/19) Weakness (02/27/19) Physical Therapy Treatment Note PT-OP-A Visit Information Start: 02/20/19 08:06 Freq: Status: Active Protocol: Document 02/27/19 09:36 [facility] (Rec: 02/27/19 10:14 [facility] [id number]) Out-Patient Physical Therapy Visit Information Visit Information Visit Type Treatment Note Visit Start Time 09:30 Visit Stop Time 10:25 Total Visit Minutes 55 Visit Number 3 Number of CLINICAL SERVICES MANAGER Visits 0 PT-OP-B Current Condition Start: 02/20/19 08:06 Freq: Status: Active Protocol: Document 02/20/19 09:30 [facility] (Rec: 02/22/19 09:28 [facility] [id number]) Current Condition History of Current Condition Onset Date 2 months Current Complaints bilateral lateral hip pain History of Current Condition Presents to PT with function- limiting pain bilateral lateral hips, no known fall or other trauma. No imaging studies. Reports gradual onset of pain but due to pain at this time reports I can't do anything. Patient lives alone and typically able to perform housework and yardwork without pain. At this time reports increased pain with movement, decreases some with rest and Tylenol. Treatment Goals Patient/Caregiver Goals Decrease pain to allow him to perform his usual daily activities including housework and yardwork. Prior Functional Status Baseline Function- ADL's Independent Baseline Function- Mobility Independent Baseline Function- Gait independent no device. Personal Factors Other Personal Factors That May Effect Patient doesn't do any regular Therapy/Recovery exercises. PT-OP-C Subjective Start: 02/20/19 08:06 Freq: Status: Active Protocol: Document 02/27/19 09:36 [facility] (Rec: 02/27/19 10:14 [facility] [id number]) OP-PT Subjective Patient Comments Patient Comments A little muscle soreness, back still hurts. I feel like we 're on the right track. PT-OP-G Mobility & Gait Start: 02/20/19 08:06 Freq: Status: Active Protocol: Document 02/20/19 09:30 [facility] (Rec: 02/24/19 16:42 [facility] [id number]) OP Mobility Evaluation Bed Mobility Rolling independent but painful Supine to and from Sit independent but painful Transfers Sit to Stand independent but painful Functional Movements Lifting and Carrying not currently doing due to paion Squats painful Running Assessment unable OP Gait Assessment Gait Gait Assistance Required: Independent Distance (Feet) 100 Assistive Devices Assistive Device None Gait Deviations General Gait Pattern Decreased Stride Length Decreased Feet Clearance Flexed Trunk Lateral Trunk Lean Factors Limiting Gait Function Factors Limiting Gait Function Pain Stair Climbing Evaluation Evaluation Level of Assist On Stairs Independent Devices Stair Climbing Assistive Devices Left Railing Right Railing Technique/Endurance Stair Climbing Direction Ascend and Descend Stair Climbing Technique Step Over Step Comments Stair Climbing Comments c/o pain PT-OP-J Posture/Palpation/Skin Start: 02/20/19 08:06 Freq: Status: Active Protocol: Document 02/20/19 09:30 [facility] (Rec: 02/24/19 16:42 [facility] [id number]) Posture Evaluation Position Standing Head/C-Spine Posture Forward Head T-Spine Posture Increased Kyphosis L-Spine Posture Flattened Palpation Assessment Location greater trochanters Palpation Location jah denied pain bilateral lumbar paraspinals Palpation Findings Soft Tissue Tightness Tenderness PT-OP-K Range of Motion Start: 02/20/19 08:06 Freq: Status: Active Protocol: Document 02/20/19 09:30 [facility] (Rec: 02/24/19 16:42 [facility] [id number]) Lumbar Spine Range of Motion Lumbar Spine Active ROM Limitations Soft Tissue Tightness Pain Comments Moderate decrease all motions with c/o stiffness and pain Hip Goniometric Range of Motion Hip Left Hip ROM WFL No Testing Position Supine Flexion w/Knee Flexed 95 Straight Leg Raise 40 Extension 15 Abduction 20 Internal Rotation 50 right Hip ROM WFL No Testing Position Supine Flexion w/Knee Flexed 95 Straight Leg Raise 45 Extension 0 Abduction 15 Internal Rotation 10 External Rotation 45 Hip ROM Limitations Hip ROM Limitations Soft Tissue Tightness Comments mod tightness bilateral quadriceps and IT bands Knee Goniometric Range of Motion Knee jah Knee ROM WFL Yes Ankle and Foot Goniometric Range of Motion Ankle and Foot jah Dorsiflexion with Knee Flexed 0 PT-OP-M Strength Start: 02/20/19 08:06 Freq: Status: Active Protocol: Document 02/20/19 09:30 [facility] (Rec: 02/24/19 16:42 [facility] [id number]) Trunk Strength Trunk Manual Muscle Testing Testing Position Supine Flexion 3- Fair- Extension 3- Fair- Hip Strength Hip Manual Muscle Testing jah Flexion (L2) 4 Good Extension (S1) 3- Fair- Abduction 3+ Fair+ Adduction 3+ Fair+ External Rotation 3+ Fair+ Internal Rotation 4- Good- Comments c/o pain with all resisted motions Knee Strength Knee Manual Muscle Testing jah Flexion (S2) 4 Good Extension (L3) 4 Good PT-OP-Q Treatments Start: 02/20/19 08:06 Freq: Status: Active Protocol: Document 02/27/19 09:36 [facility] (Rec: 02/27/19 10:14 [facility] [id number]) Cardio Equipment Recumbent Stepper (Sci-Fit) Duration (Minutes) 10 Resistance 1.5 Seat Position 10 Gym Equipment Shuttle Recovery Bilateral Squats Resistance 75 Shuttle Recovery Platform Stable Reps/Time 10x2 Therapeutic Exercises Supine Exercises gluteal set Reps/Minutes 10x5 hamstring stretch Reps/Minutes 2x30 piriformis stretch Reps/Minutes 2x30 SKTC Reps/Minutes 2x30 lower trunk rotation Reps/Minutes 10x pelvic tilt Reps/Minutes 10x Standing Exercises sh ext Equipment Used L1 TB Reps/Minutes 10x row Equipment Used L1 TB Reps/Minutes 10x hip abd Reps/Minutes 10x march Reps/Minutes 10x squats Reps/Minutes 10x heel raises, toe raises Reps/Minutes 10x ea Manual Therapy Treatment Soft Tissue Mobilization ITband Mobilization Type Myofascial Release Rolling Strumming Intensity/Depth Moderate Body Position Hooklying hamstrings Mobilization Type Myofascial Release Rolling Strumming Intensity/Depth Moderate Body Position Hooklying Self-Care/Home Management Treatment Education Other Education logroll for back protection PT-OP-R Modalities Start: 02/20/19 08:06 Freq: Status: Active Protocol: Document 02/27/19 09:36 [facility] (Rec: 02/27/19 10:14 [facility] [id number]) Hot Pack/Cold Pack Treatment Hot Pack Location lumbar paraspinals and hips Patient Position Hooklying Treatment Duration (minutes) 15 Patient Tolerance Good PT-OP-T Assessment and Plan Start: 02/20/19 08:06 Freq: Status: Active Protocol: Document 02/27/19 09:36 [facility] (Rec: 02/27/19 10:14 [facility] [id number]) Physical Therapy Assessment Other Concerns Barriers to Rehabilitation patient TRIBAL, has PMH of DMII and CVA Goals 3 Impairment activity tolerance Short Term Goal (STG) Patient will be able to resume daily household activities without an increase in pain STG Duration 04/23/19 Forest Landscape Ecology Professor Goal (LTG) Patient will be able to resume gardening without an increase in pain LTG Duration 04/23/19 2 Impairment decreased flexibility and strength jah core and hips Short Term Goal (STG) Patient will be instructed in a HEP to address above impairments STG Duration 03/23/19 Senior Care Goal (LTG) Patient will be independent and compliant with HEP and demonstrate improvements in flexibility and strength LTG Duration 04/23/19 1 Impairment pain 6/10 Short Term Goal (STG) Decrease pain to no greater than 4/10 STG Duration 03/23/19 Forest Landscape Ecology Professor Goal (LTG) Decrease pain to no greater than 2/10 LTG Duration 04/23/19 Assessment Summary Assessment Frequent c/o pain during session, demonstrated fair understanding of logroll for back protection; will need review. Physical Therapy Plan Frequency and Duration Frequency of Treatment 2x/Week Duration of Treatment 8 Plan of Care Start Date 02/20/19 Plan of Care End Date 04/23/19 Therapeutic Interventions Therapeutic Interventions Aquatic Therapy Home Exercise Program Manual Therapy Patient/Caregiver Education Self-Care/Home Management Soft Tissue Mobilization Taping Therapeutic Activities Therapeutic Exercises Modalities Cold Pack/Ice Massage Electric Stimulation Hot Packs Traction- Mechanical Ultrasound Next Visit Focus/Plan Next Note Type Treatment Note Next Visit Plan Review logroll, continue ther ex. possible ultrasound and soft tissue mobilization trial to lumbar paraspinals
--- NOTE | 2019-03-04 10:36 | PT-OP ANOTE ---
No show for PT appointment today
--- NOTE | 2019-03-19 11:04 | PT-OP ANOTE ---
Pt N/S for appointment, L/M to D/C due to attendance policy.
--- NOTE | 2019-06-20 16:19 | PT.OPDS ---
Current Diagnoses Other chronic pain (02/27/19) Stiffness of unspecified joint, not elsewhere classified (02/27/19) Low back pain (02/27/19) Weakness (02/27/19) Visit Care Team Role Provider Type Luis Woodard MD Attending Provider Physician Primary Care Provider Specialty: Internal Medicine Address: [address] [place] [address], [facility] Email: [email or web address] Visit Number Visit Number 3 Discharge Summary PT-OP-B Current Condition Start: 02/20/19 08:06 Freq: Status: Active Protocol: Document 02/20/19 09:30 SAK (Rec: 02/22/19 09:28 [facility] [id number]) Current Condition History of Current Condition Onset Date 2 months Current Complaints bilateral lateral hip pain History of Current Condition Presents to PT with function- limiting pain bilateral lateral hips, no known fall or other trauma. No imaging studies. Reports gradual onset of pain but due to pain at this time reports I can't do anything. Patient lives alone and typically able to perform housework and yardwork without pain. At this time reports increased pain with movement, decreases some with rest and Tylenol. Treatment Goals Patient/Caregiver Goals Decrease pain to allow him to perform his usual daily activities including housework and yardwork. Prior Functional Status Baseline Function- ADL's Independent Baseline Function- Mobility Independent Baseline Function- Gait independent no device. Personal Factors Other Personal Factors That May Effect Patient doesn't do any regular Therapy/Recovery exercises. PT-OP-C Subjective Start: 02/20/19 08:06 Freq: Status: Active Protocol: Document 02/27/19 09:36 SAK (Rec: 02/27/19 10:14 SAK [id number]) OP-PT Subjective Patient Comments Patient Comments A little muscle soreness, back still hurts. I feel like we 're on the right track. PT-OP-G Mobility & Gait Start: 02/20/19 08:06 Freq: Status: Active Protocol: Document 02/20/19 09:30 SAK (Rec: 02/24/19 16:42 SAK [id number]) OP Mobility Evaluation Bed Mobility Rolling independent but painful Supine to and from Sit independent but painful Transfers Sit to Stand independent but painful Functional Movements Lifting and Carrying not currently doing due to paion Squats painful Running Assessment unable OP Gait Assessment Gait Gait Assistance Required: Independent Distance (Feet) 100 Assistive Devices Assistive Device None Gait Deviations General Gait Pattern Decreased Stride Length, Decreased Feet Clearance, Flexed Trunk,Lateral Trunk Lean Factors Limiting Gait Function Factors Limiting Gait Function Pain Stair Climbing Evaluation Evaluation Level of Assist On Stairs Independent Devices Stair Climbing Assistive Devices Left Railing,Right Railing Technique/Endurance Stair Climbing Direction Ascend and Descend Stair Climbing Technique Step Over Step Comments Stair Climbing Comments c/o pain PT-OP-J Posture/Palpation/Skin Start: 02/20/19 08:06 Freq: Status: Active Protocol: Document 02/20/19 09:30 SAK (Rec: 02/24/19 16:42 [facility] [id number]) Posture Evaluation Position Standing Head/C-Spine Posture Forward Head T-Spine Posture Increased Kyphosis L-Spine Posture Flattened Palpation Assessment Location greater trochanters Palpation Location jah denied pain bilateral lumbar paraspinals Palpation Findings Soft Tissue Tightness, Tenderness PT-OP-K Range of Motion Start: 02/20/19 08:06 Freq: Status: Active Protocol: Document 02/20/19 09:30 SAK (Rec: 02/24/19 16:42 [facility] [id number]) Lumbar Spine Range of Motion Lumbar Spine Active ROM Limitations Soft Tissue Tightness,Pain Comments Moderate decrease all motions with c/o stiffness and pain Hip Goniometric Range of Motion Hip Left Hip ROM WFL No Testing Position Supine Flexion w/Knee Flexed 95 Straight Leg Raise 40 Extension 15 Abduction 20 Internal Rotation 50 right Hip ROM WFL No Testing Position Supine Flexion w/Knee Flexed 95 Straight Leg Raise 45 Extension 0 Abduction 15 Internal Rotation 10 External Rotation 45 Hip ROM Limitations Hip ROM Limitations Soft Tissue Tightness Comments mod tightness bilateral quadriceps and IT bands Knee Goniometric Range of Motion Knee jah Knee ROM WFL Yes Ankle and Foot Goniometric Range of Motion Ankle and Foot jah Dorsiflexion with Knee Flexed 0 PT-OP-M Strength Start: 02/20/19 08:06 Freq: Status: Active Protocol: Document 02/20/19 09:30 SAK (Rec: 02/24/19 16:42 SAK [id number]) Trunk Strength Trunk Manual Muscle Testing Testing Position Supine Flexion 3- Fair- Extension 3- Fair- Hip Strength Hip Manual Muscle Testing jah Flexion (L2) 4 Good Extension (S1) 3- Fair- Abduction 3+ Fair+ Adduction 3+ Fair+ External Rotation 3+ Fair+ Internal Rotation 4- Good- Comments c/o pain with all resisted motions Knee Strength Knee Manual Muscle Testing jah Flexion (S2) 4 Good Extension (L3) 4 Good PT-OP-T Assessment and Plan Start: 02/20/19 08:06 Freq: Status: Active Protocol: Document 06/20/19 16:18 [facility] (Rec: 06/20/19 16:19 [facility] [id number]) Physical Therapy Plan Discharge Physical Therapy Discharge Reasons No Longer Attending PT Discharge Comments Multiple no shows for appts. Will be discharged from PT due to noncompliance with atendance policy.
== END 2019-07-26 11:57 ==
LOC: PHYS 09:30
PROVIDERS: PCP Student in an Organized Health Care Education/Training Program; Visit Provider Student in an Organized Health Care Education/Training Program
DX: M54.5 Low back pain (principal); G89.29 Other chronic pain; R53.1 Weakness; M25.60 Stiffness of unspecified joint, not elsewhere classified
CPT/HCPCS: 97010; 97110; 97161; 97535

== ENCOUNTER → 2019-03-13 11:44 | Outpatient (CLI) | payer MEDICARE, OTHER, SELFPAY ==
[2019-03-13 12:34] LABS: BUN Creatinine Ratio 21.3 (6-22); Blood Urea Nitrogen 17 mg/dL (9-20); Calcium 9.7 mg/dL (8.4-10.2); Carbon Dioxide 29 mmol/L (22-32); Chloride 102 mmol/L (98-107); Estimated Glomerular Filt Rate > 60.0 mL/min (>60); Glucose 184 mg/dL (80-110); HEMOLYSIS 20 (0-50); Potassium 4.2 mmol/L (3.4-5.1); Sodium 140 mmol/L (137-145); Uric Acid 3.6 mg/dL (3.5-8.5)
[2019-03-13 12:37] LABS: C-Reactive Protein Quant < 0.5 mg/dL (<1.0)
== END ==
PROVIDERS: PCP Student in an Organized Health Care Education/Training Program; Visit Provider Nurse Practitioner
DX: R10.9 Unspecified abdominal pain (principal)
CPT/HCPCS: 36415; 80048; 82565; 84520; 84550; 86140

== ENCOUNTER 2019-03-15 10:43 | Emergency (ER) | payer MEDICARE, OTHER, SELFPAY ==
[2019-03-15 11:13] VITALS: BP 115/64; PULSE 82; RESP 18; TEMP 36.7; O2SAT 99; BMI 12.9
--- NOTE | 2019-03-15 12:04 | PC.NURSE ---
pt refused an iv. Alvarado, RESIDENTIAL GREEN BUILDING DESIGNER aware and is talking to patient.
[2019-03-15 12:09] LABS: Add Manual Diff / Slide Review NO; Basophils Absolute Auto 100 /uL (0-100); Basophils Percent Auto 0.7 % (0-2); Eosinophils Absolute Auto 300 /uL (0-450); Eosinophils Percent Auto 4.4 % (2-4); Hematocrit 41.7 % (41-53); Hemoglobin 14.4 g/dL (13.5-17.5); Lymphocytes Absolute Auto 2500 /uL (1100-4500); Lymphocytes Percent Auto 34.1 % (25-40); Mean Corpuscular HGB Conc 34.6 % (30-36); Mean Corpuscular Hemoglobin 32.2 PG (26-34); Mean Corpuscular Volume 93.1 fL (80-100); Monocytes Absolute Auto 600 /uL (0-900); Monocytes Percent Auto 7.6 % (3-14); Neutrophils Absolute Auto 3900 /uL (1500-7000); Neutrophils Percent Auto 53.2 % (50-75); Platelet Count 146 X10^3/uL (150-400); Red Blood Cell Count 4.48 X10^6/uL (4.5-5.9); Red Cell Distribution Width 13.8 % (11.6-14.8); White Blood Cell Count 7.3 X10^3/uL (4.5-11.0)
[2019-03-15 12:16] LABS: INR 1.2 (0.9-1.3); Prothrombin Time 13.8 SECONDS (10.1-12.7)
[2019-03-15 12:17] VITALS: BP 140/80; PULSE 66; RESP 12; O2SAT 99
[2019-03-15 12:19] LABS: PTT Partial Thromboplastin Tim 47 SECONDS (26.4-36.2)
[2019-03-15 12:22] LABS: Alanine Aminotransferase 25 IU/L (21-72); Albumin 4.2 g/dL (3.5-5.0); Albumin Globulin Ratio 1.5 (1.0-2.8); Alkaline Phosphatase 39 U/L (38-126); Aspartate Aminotransferase 22 IU/L (17-59); BUN Creatinine Ratio 18.9 (6-22); Bilirubin Total 0.9 mg/dL (0.2-1.3); Blood Urea Nitrogen 17 mg/dL (9-20); Calcium 9.5 mg/dL (8.4-10.2); Carbon Dioxide 29 mmol/L (22-32); Chloride 100 mmol/L (98-107); Estimated Glomerular Filt Rate > 60.0 mL/min (>60); Globulin 2.8 g/dL (1.7-4.1); Glucose 147 mg/dL (80-110); HEMOLYSIS < 15 (0-50); Lipase 337 U/L (23-300); Potassium 4.8 mmol/L (3.4-5.1); Sodium 139 mmol/L (137-145)
[2019-03-15] MEDS: KETOROLAC 60 MG/2 ML VIAL 30 MG IM (12:26)
[2019-03-15] MEDS: CYCLOBENZAPRINE 5 MG TABLET PO (12:26)
[2019-03-15 13:08] LABS: Bacteria Urine None Seen
--- NOTE | 2019-03-15 13:21 | DI.CT.S_ITS ---
PROCEDURE: CT KIDNEY URETER BLADDER (KUB) INDICATIONS: L flank pain with hematuria TECHNIQUE: Noncontrast 5 mm thick sections acquired from the diaphragms to the symphysis. 5 mm thick coronal and sagittal reformats were then performed. For radiation dose reduction, the following was used: automated exposure control, adjustment of mA and/or kV according to patient size. COMPARISON: [facility], CT, CT ABDOMEN PELVIS WO CON, 02/06/2019, 15:40. FINDINGS: Image quality: Excellent. Lung bases: Lung bases are clear. Heart size is normal. The atherosclerotic calcifications noted in the visualized coronary vasculature. Urinary system: Both kidneys are normal in size. Cluster of stones measuring approximately 1.1 cm node in the inferior pole of the left kidney. 2 mm stone is noted in the midpole of left kidney. 2 mm stone is noted in the midpole of the right kidney. 4.7 cm left renal cyst is stable. No hydronephrosis or perinephric fat stranding. Both ureters appear non-dilated throughout their expected courses. Bladder wall thickness is normal; no calcified bladder stones. Other solid organs: Liver is normal in size. Cysts in the left hepatic lobe is stable. Gallbladder is within normal limits. Pancreas is normal in contours. Spleen is normal in size. No adrenal nodules. Peritoneum and bowel: Unenhanced bowel loops demonstrate normal wall thickness and caliber. Scattered colonic diverticuli without evidence of diverticulitis. No free fluid or air. Appendix is normal. Nodes and vessels: No retroperitoneal or mesenteric adenopathy by size criteria. Aorta and inferior vena cava are normal in caliber. Scattered atherosclerotic calcifications involving the abdominal and pelvic vasculature. Abdominal wall: No ventral hernias. Pelvis: No free pelvic fluid. No inguinal adenopathy. Small fat containing left inguinal hernia. Bones: No suspicious bony lesions. No vertebral body compression fractures. Spine degenerative disc disease and facet arthropathy. IMPRESSION: 1. Stable examination compared to 02/06/2019 with no acute disease process. 2. Bilateral nonobstructing renal stones. 3. The appendix is normal 4. No free fluid or free air. 5. No dilated loops of bowel. 6. Colonic diverticulosis without evidence diverticulitis. Dictated by: Loretta Henry MD, PhD on 03/15/2019 at 13:48 Approved by: Loretta Henry MD, PhD on 03/15/2019 at 13:57
[2019-03-15 13:23] LABS: Amorphous Sediment Urine 1+; Culture Indicated Urine Cult Not Indicated; Mucus Urine 1+ (Negative); RBC Urine 0-1/HPF (0-5/HPF); Squamous Epithelial Cell Urine 0-1 /HPF (0-5/HPF); WBC Urine 0-1/HPF (0-5/HPF)
--- NOTE | 2019-03-15 13:54 | ED.BACK ---
HPI - Back Pain/Injury <MACKENZIE Arguello - Last Filed: 03/16/19 03:10> General Chief Complaint: Back Pain/Injury Stated Complaint: PAIN IN LOWER BACK/KIDNEYS Time Seen by Provider: 03/15/19 11:03 Source: patient Mode of arrival: ambulatory Limitations: other (difficulty hearing) History of Present Illness HPI Narrative: This is a 84-year-old gentleman, smoker, presents with a friend with chief complain of left flank pain. The patient reports he thinks he may head a kidney stone. He reports having a kidney stone in distant history. However patient has been seen in ED and by his primary care provider similar back pain and has been treated with musculoskeletal pain. Patient denies urinary symptoms such as urgency, frequency, dysuria or hematuria. He denies fever, chills, nausea, vomiting. Patient reports pain increases with movement and reports pain improves with rest. He states this back/flank pain started when he was in the low pain walking up about 100 steps/stairs [place] He has been getting physical therapy for this pain but does not think it is helping him. He does have an appointment today at 3:00 p.m. with his PCP but thought something has to be done for his pain so he came in to ED. Related Data Home Medications Medication Instructions Recorded Confirmed atorvastatin [Lipitor] 20 mg PO BEDTIME 03/15/19 03/15/19 folic acid 1 mg PO DAILY 03/15/19 03/15/19 glipizide [Glucotrol XL] 5 mg PO DAILY 03/15/19 03/15/19 lisinopril 2.5 mg PO QAM 03/15/19 03/15/19 metaxalone 200 mg PO TID PRN 03/15/19 03/15/19 Previous Rx's Medication Instructions Recorded dabigatran etexilate 150 mg capsule 150 mg PO BID #370 cap 10/09/18 metformin 500 mg tablet 1,000 mg PO BIDCC #730 tab 10/09/18 metoprolol succinate ER 50 mg 50 mg PO BID #370 tab 10/09/18 tablet,extended release 24 hr lovastatin 20 mg tablet 20 mg PO QPM #90 tab 01/25/19 tramadol 50 mg tablet 50 mg PO TID 7 Days #21 tab 08/13/19 Allergies Allergy/AdvReac Type Severity Reaction Status Date / Time No Known Drug Allergies Allergy Verified 03/15/19 15:27 Review of Systems <MACKENZIE Arguello - Last Filed: 03/16/19 03:10> Review of Systems General: Denies fever, chills, fatigue, malaise, sweats. HEENT: Denies sinus pain, ear pain, sore throat, difficulty swallowing, dizziness. Respiratory: Denies dyspnea, cough, wheezing, hemoptysis, sputum. Cardiovascular: Denies chest pain, palpitations, orthopnea, edema. Gastrointestinal: Denies nausea, vomiting, abdominal pain, diarrhea, constipation, melena. : See HPI Musculoskeletal: See HPI Skin: Denies rash, skin lesions, or other. Neurologic: Denies weakness, headache, numbness, change in speech, confusion, seizures, incoordination. Psychiatric: No concerning psychosocial issues. 12-point review of systems is negative except for those stated above. PFSH <MACKENZIE Arguello - Last Filed: 03/16/19 03:10> Medical History Atrial fibrillation (Chronic Unknown) Stroke (Resolved Unknown) Hearing loss (Chronic Unknown) Cataracts, bilateral (Chronic Unknown) Diabetes (Chronic Unknown) Hyperlipemia (Chronic Unknown) Hypertension (Chronic Unknown) Essential hypertension (Chronic 07/18/16) History of stroke (Chronic 07/18/16) Pure hypercholesterolemia (Chronic 07/18/16) Chronic atrial fibrillation (Chronic 11/01/16) Type 2 diabetes mellitus without complication, without long-term current use of insulin (Chronic 02/09/17) Surgical History No history of previous surgery (Chronic) Family History Mother No problems noted. Social History Smoking Status: Current every day smoker Family History Mother No problems noted. Social History Smoking Status: Current every day smoker Exam <Alvarado MACKENZIE Odell - Last Filed: 03/16/19 03:10> Narrative Exam Narrative: GEN: Alert, oriented x 3, well appearing and nourished, and in no acute distress. Head: Normal cephalic, atraumatic. No scalp or temporal tenderness, palpable mass or rash. EYES: Pupils are equal, round, and reactive to light and accommodation. Extraocular muscles are intact bilaterally. There is no subconjunctival hemorrhage, exudate and sclera non-icteric. ENT: Nose without bleeding, purulent discharge. Mucous membrane moist, no mucosal lesion. Throat without erythema, tonsillar hypertrophy or exudate. Uvula in midline, airway patent. Neck: Trachea in midline. No JVD, non-tender without lymphadenopathy. No masses or thyroid megaly. Supple, non-tender and no meningeal signs. CARDIAC: Irregular rhythm without murmurs, gallops, or rubs. No chest wall tenderness. No peripheral edema, cyanosis or pallor. Capillary refill is less than 2 seconds. RESPIRATORY: Lungs are cleat to auscultate bilaterally. No cough, wheezes, rales, or rhonchi. No stridor, respiratory distress, increase work of breathing, or accessary muscle used. ABD: Abdomen soft, nontender and non-distended. No guarding or rebound tenderness to palpate. Bowel sounds are normal in all 4 quadrants. There is no palpable masses or organomegaly. EXT: Full painless ROM of all extremities with no loss of sensation, strength, effusion or edema. SKIN: Warm, dry, normal color for patient. No erythema, lesions or rash over visible areas. BACK: Nontender to palpate without deformity or crepitance. No flank tenderness with percussion. Leg raise test negative. Paraspinal muscle feels tight to palpate without spasm. NEUROLOGICAL: Alert and oriented to place, time and person. Sensation and motor function intact bilaterally. No facial droops, dysphasia. PSYCHIATRIC: Good judgement and reason, without hallucinations, abnormal affect or abnormal behaviors during the examination. Patient is not suicidal. Initial Vital Signs Initial Vital Signs: Vital Signs Temperature 98.0 F 03/15/19 11:13 Pulse Rate 82 03/15/19 11:13 Respiratory Rate 18 03/15/19 11:13 Blood Pressure 115/64 03/15/19 11:13 Pulse Oximetry 99 03/15/19 11:13 <Nahun Rolon DO - Last Filed: 03/16/19 07:33> Initial Vital Signs Initial Vital Signs: Vital Signs Temperature 98.0 F 03/15/19 11:13 Pulse Rate 82 03/15/19 11:13 Respiratory Rate 18 03/15/19 11:13 Blood Pressure 115/64 03/15/19 11:13 Pulse Oximetry 99 03/15/19 11:13 Course <MACKENZIE Arguello - Last Filed: 03/16/19 03:10> Orders Ordered: Discontinued Medications Cyclobenzaprine HCl (Flexeril) 5 mg PO NOW ONE Stop: 03/15/19 11:57 Last Admin: 03/15/19 12:26 Dose: 5 mg Ketorolac Tromethamine (Toradol) 30 mg IM NOW ONE Stop: 03/15/19 11:57 Last Admin: 03/15/19 12:26 Dose: 30 mg Vital Signs - 8 hr 03/15/19 11:13 03/15/19 12:17 Temperature 98.0 F Pulse Rate 82 66 Respiratory Rate 18 12 Blood Pressure 115/64 Blood Pressure [Left Arm] 140/80 Pulse Oximetry 99 99 <Nahun Rolon DO - Last Filed: 03/16/19 07:33> Orders Ordered: Discontinued Medications Cyclobenzaprine HCl (Flexeril) 5 mg PO NOW ONE Stop: 03/15/19 11:57 Last Admin: 03/15/19 12:26 Dose: 5 mg Ketorolac Tromethamine (Toradol) 30 mg IM NOW ONE Stop: 03/15/19 11:57 Last Admin: 03/15/19 12:26 Dose: 30 mg Vital Signs - 8 hr 03/15/19 11:13 03/15/19 12:17 Temperature 98.0 F Pulse Rate 82 66 Respiratory Rate 18 12 Blood Pressure 115/64 Blood Pressure [Left Arm] 140/80 Pulse Oximetry 99 99 MDM - Back Pain/Injury <MACKENZIE Arguello - Last Filed: 03/16/19 03:10> Differential Diagnosis Differential diagnosis: Likely strain of lumbar region, renal colic, pyelonephritis and AAA Medical Records Attestation: I reviewed the patient's medical records. Lab Data Attestation: I reviewed the patient's lab results. Result diagrams: 03/15/19 11:52 03/15/19 11:52 Lab Results 03/15/19 03/15/19 03/15/19 Range/Units 11:52 11:52 11:52 WBC 7.3 (4.5-11.0) X10^3/uL RBC 4.48 L (4.5-5.9) X10^6/uL Hgb 14.4 (13.5-17.5) g/dL Hct 41.7 (41-53) % MCV 93.1 (80-100) fL MCH 32.2 (26-34) PG MCHC 34.6 (30-36) % RDW 13.8 (11.6-14.8) % Plt Count 146 L (150-400) X10^3/uL Neut % (Auto) 53.2 (50-75) % Lymph % (Auto) 34.1 (25-40) % Aiken % (Auto) 7.6 (3-14) % Eos % (Auto) 4.4 H (2-4) % Baso % (Auto) 0.7 (0-2) % Neut # (Auto) 3900 (0993-7733) /uL Lymph # (Auto) 2500 (2851-7363) /uL Aiken # (Auto) 600 (0-900) /uL Eos # (Auto) 300 (0-450) /uL Baso # (Auto) 100 (0-100) /uL PT 13.8 H (10.1-12.7) SECONDS INR 1.2 (0.9-1.3) APTT 47 H (26.4-36.2) SECONDS Sodium 139 (137-145) mmol/L Potassium 4.8 (3.4-5.1) mmol/L Chloride 100 (98-107) mmol/L Carbon Dioxide 29 (22-32) mmol/L BUN 17 (9-20) mg/dL Creatinine 0.90 (0.66-1.25) mg/dL Estimated GFR > 60.0 (>60) mL/min BUN/Creatinine Ratio 18.9 (6-22) Glucose 147 H (80-110) mg/dL Calcium 9.5 (8.4-10.2) mg/dL Total Bilirubin 0.9 (0.2-1.3) mg/dL AST 22 (17-59) IU/L ALT 25 (21-72) IU/L Alkaline Phosphatase 39 (38-126) U/L Total Protein 7.0 (6.3-8.2) g/dL Albumin 4.2 (3.5-5.0) g/dL Globulin 2.8 (1.7-4.1) g/dL Albumin/Globulin Ratio 1.5 (1.0-2.8) Lipase 337 H (23-300) U/L Urine RBC (0-5/HPF) Urine WBC (0-5/HPF) Ur Squamous Epith Cells (0-5/HPF) Amorphous Sediment Urine Bacteria (None) Urine Mucus (Negative) Ur Culture Indicated? 03/15/19 Range/Units 12:57 WBC (4.5-11.0) X10^3/uL RBC (4.5-5.9) X10^6/uL Hgb (13.5-17.5) g/dL Hct (41-53) % MCV (80-100) fL MCH (26-34) PG MCHC (30-36) % RDW (11.6-14.8) % Plt Count (150-400) X10^3/uL Neut % (Auto) (50-75) % Lymph % (Auto) (25-40) % Aiken % (Auto) (3-14) % Eos % (Auto) (2-4) % Baso % (Auto) (0-2) % Neut # (Auto) (8822-0834) /uL Lymph # (Auto) (9559-9737) /uL Aiken # (Auto) (0-900) /uL Eos # (Auto) (0-450) /uL Baso # (Auto) (0-100) /uL PT (10.1-12.7) SECONDS INR (0.9-1.3) APTT (26.4-36.2) SECONDS Sodium (137-145) mmol/L Potassium (3.4-5.1) mmol/L Chloride (98-107) mmol/L Carbon Dioxide (22-32) mmol/L BUN (9-20) mg/dL Creatinine (0.66-1.25) mg/dL Estimated GFR (>60) mL/min BUN/Creatinine Ratio (6-22) Glucose (80-110) mg/dL Calcium (8.4-10.2) mg/dL Total Bilirubin (0.2-1.3) mg/dL AST (17-59) IU/L ALT (21-72) IU/L Alkaline Phosphatase (38-126) U/L Total Protein (6.3-8.2) g/dL Albumin (3.5-5.0) g/dL Globulin (1.7-4.1) g/dL Albumin/Globulin Ratio (1.0-2.8) Lipase (23-300) U/L Urine RBC 0-1/hpf (0-5/HPF) Urine WBC 0-1/hpf (0-5/HPF) Ur Squamous Epith Cells 0-1 /hpf (0-5/HPF) Amorphous Sediment 1+ Urine Bacteria None seen (None) Urine Mucus 1+ H (Negative) Ur Culture Indicated? Cult not indicated Urine Dip Bedside Urine Glucose Negative Bedside Urine Bilirubin - Negative Bedside Urine Ketone - Negative Urine Specific Carlos 1.025 Bedside Urine Occult Blood ++ Bedside Urine pH 5.5 Bedside Urine Protein - Negative Bedside Urine Urobilinogen - Negative Bedside Urine Nitrite - Negative Bedside Urine Leukocytes - Negative Esterase Imaging Data CT-Abd/pelvis: Radiologist's impression: Chart Viewer Diagnostics DATE TYPE STATUS AUTHOR Hx 03/15/19 13:21 Loretta Henry 02/06/19 15:35 Luis Ayala Richard K 84, M0 1935 REG ER, ED.LOC - Main ED: R10 165.1cm 35.426kg BMI: 13.0kg/m? Back Pain/Injury Search Chart No Data to Display ONSET Unknown Unknown Unknown Unknown Unknown Unknown Unknown 11/27/15 11/27/15 12/08/15 07/18/16 07/18/16 07/18/16 07/18/16 11/01/16 02/09/17 Today 13:57 Favian Robin 84 M [address] [address] [address] Scan Report Signed Patient: Favian Robin KMR#: [id number] : 1935cct:[id number] Age/Sex: 84 / MDate of Service: 03/15/19 Loc: ED Accession Number: [id number] Procedure: CT kidney ureter bladder (KUB) Ordering Provider: Alvarado Odell PROCEDURE: CT KIDNEY URETER BLADDER (KUB) INDICATIONS: L flank pain with hematuria TECHNIQUE: Noncontrast 5 mm thick sections acquired from the diaphragms to the symphysis. 5 mm thick coronal and sagittal reformats were then performed. For radiation dose reduction, the following was used: automated exposure control, adjustment of mA and/or kV according to patient size. COMPARISON: [facility], CT, CT ABDOMEN PELVIS WO CON, 02/06/2019, 15:40. FINDINGS: Image quality: Excellent. Lung bases: Lung bases are clear. Heart size is normal. The atherosclerotic calcifications noted in the visualized coronary vasculature. Urinary system: Both kidneys are normal in size. Cluster of stones measuring approximately 1.1 cm node in the inferior pole of the left kidney. 2 mm stone is noted in the midpole of left kidney. 2 mm stone is noted in the midpole of the right kidney. 4.7 cm left renal cyst is stable. No hydronephrosis or perinephric fat stranding. Both ureters appear non-dilated throughout their expected courses. Bladder wall thickness is normal; no calcified bladder stones. Other solid organs: Liver is normal in size. Cysts in the left hepatic lobe is stable. Gallbladder is within normal limits. Pancreas is normal in contours. Spleen is normal in size. No adrenal nodules. Peritoneum and bowel: Unenhanced bowel loops demonstrate normal wall thickness and caliber. Scattered colonic diverticuli without evidence of diverticulitis. No free fluid or air. Appendix is normal. Nodes and vessels: No retroperitoneal or mesenteric adenopathy by size criteria. Aorta and inferior vena cava are normal in caliber. Scattered atherosclerotic calcifications involving the abdominal and pelvic vasculature. Abdominal wall: No ventral hernias. Pelvis: No free pelvic fluid. No inguinal adenopathy. Small fat containing left inguinal hernia. Bones: No suspicious bony lesions. No vertebral body compression fractures. Spine degenerative disc disease and facet arthropathy. IMPRESSION: 1. Stable examination compared to 02/06/2019 with no acute disease process. 2. Bilateral nonobstructing renal stones. 3. The appendix is normal 4. No free fluid or free air. 5. No dilated loops of bowel. 6. Colonic diverticulosis without evidence diverticulitis. Dictated by: Loretta Henry MD, PhD on 03/15/2019 at 13:48 Approved by: Loretta Henry MD, PhD on 03/15/2019 at 13:57 ECG Data Attestation: I personally reviewed and interpreted this ECG as follows: Prior ECG tracings: available for review Interpretation: Atrial fibrillation rate at 82, noramal axis, no ST elevated or deprassion. Previous EKG as sinus bradycardia. MDM Narrative Medical decision making narrative: This is a 84-year-old male presents with left side low back pain consistent with musculoskeletal in origin. Patient reports movement aggravates pain and pain improves with rest. He has an appointment with his primary care physician at 3:00 p.m. today but his pain was so severe that he came in to ED for treatment and evaluation. He has been getting physical therapy for this back pain but he thinks this has been really helping him. He denied urinary symptoms including hematuria with this back pain. Patient reports he has history of kidney stones and is wondering the back pain is caused by this. Patient denies constitutional symptoms or rash on his back. His POC urine test shows 2+ blood obvious infection. CT scan was obtained and compared with02/06/19. The CT exam indicates no acute disease process since the last CT, bilateral nonobstructing renal stones, colonic diverticulosis without evidence of diverticulitis, normal size of aorta and inferior vena cava. Patient reports he is known to have kidney stones in the past. His blood tests for CBC, chemistry, coagulation were unremarkable. The patient was treated with Ketorlac 30mg IM injection and 5 mg of Flexeril. Patient reports his pain is improved bit. Patient was discharged to follow up with his doctor today. Patient assured that physical therapy, and NSAIDs and occasional muscle relaxant are 1st line of back pain treatment. Patient verbalized the understanding and questions answered to apparent satisfaction. Flexeril medication precautions were discussed with the patient. I discussed return precautions with the patient and friend. <Nahun Rolon, DO - Last Filed: 03/16/19 07:33> Lab Data Lab Results 03/15/19 03/15/19 03/15/19 Range/Units 11:52 11:52 11:52 WBC 7.3 (4.5-11.0) X10^3/uL RBC 4.48 L (4.5-5.9) X10^6/uL Hgb 14.4 (13.5-17.5) g/dL Hct 41.7 (41-53) % MCV 93.1 (80-100) fL MCH 32.2 (26-34) PG MCHC 34.6 (30-36) % RDW 13.8 (11.6-14.8) % Plt Count 146 L (150-400) X10^3/uL Neut % (Auto) 53.2 (50-75) % Lymph % (Auto) 34.1 (25-40) % Aiken % (Auto) 7.6 (3-14) % Eos % (Auto) 4.4 H (2-4) % Baso % (Auto) 0.7 (0-2) % Neut # (Auto) 3900 (7589-1767) /uL Lymph # (Auto) 2500 (6322-6367) /uL Aiken # (Auto) 600 (0-900) /uL Eos # (Auto) 300 (0-450) /uL Baso # (Auto) 100 (0-100) /uL PT 13.8 H (10.1-12.7) SECONDS INR 1.2 (0.9-1.3) APTT 47 H (26.4-36.2) SECONDS Sodium 139 (137-145) mmol/L Potassium 4.8 (3.4-5.1) mmol/L Chloride 100 (98-107) mmol/L Carbon Dioxide 29 (22-32) mmol/L BUN 17 (9-20) mg/dL Creatinine 0.90 (0.66-1.25) mg/dL Estimated GFR > 60.0 (>60) mL/min BUN/Creatinine Ratio 18.9 (6-22) Glucose 147 H (80-110) mg/dL Calcium 9.5 (8.4-10.2) mg/dL Total Bilirubin 0.9 (0.2-1.3) mg/dL AST 22 (17-59) IU/L ALT 25 (21-72) IU/L Alkaline Phosphatase 39 (38-126) U/L Total Protein 7.0 (6.3-8.2) g/dL Albumin 4.2 (3.5-5.0) g/dL Globulin 2.8 (1.7-4.1) g/dL Albumin/Globulin Ratio 1.5 (1.0-2.8) Lipase 337 H (23-300) U/L Urine RBC (0-5/HPF) Urine WBC (0-5/HPF) Ur Squamous Epith Cells (0-5/HPF) Amorphous Sediment Urine Bacteria (None) Urine Mucus (Negative) Ur Culture Indicated? 03/15/19 Range/Units 12:57 WBC (4.5-11.0) X10^3/uL RBC (4.5-5.9) X10^6/uL Hgb (13.5-17.5) g/dL Hct (41-53) % MCV (80-100) fL MCH (26-34) PG MCHC (30-36) % RDW (11.6-14.8) % Plt Count (150-400) X10^3/uL Neut % (Auto) (50-75) % Lymph % (Auto) (25-40) % Aiken % (Auto) (3-14) % Eos % (Auto) (2-4) % Baso % (Auto) (0-2) % Neut # (Auto) (2369-0260) /uL Lymph # (Auto) (3903-3671) /uL Aiken # (Auto) (0-900) /uL Eos # (Auto) (0-450) /uL Baso # (Auto) (0-100) /uL PT (10.1-12.7) SECONDS INR (0.9-1.3) APTT (26.4-36.2) SECONDS Sodium (137-145) mmol/L Potassium (3.4-5.1) mmol/L Chloride (98-107) mmol/L Carbon Dioxide (22-32) mmol/L BUN (9-20) mg/dL Creatinine (0.66-1.25) mg/dL Estimated GFR (>60) mL/min BUN/Creatinine Ratio (6-22) Glucose (80-110) mg/dL Calcium (8.4-10.2) mg/dL Total Bilirubin (0.2-1.3) mg/dL AST (17-59) IU/L ALT (21-72) IU/L Alkaline Phosphatase (38-126) U/L Total Protein (6.3-8.2) g/dL Albumin (3.5-5.0) g/dL Globulin (1.7-4.1) g/dL Albumin/Globulin Ratio (1.0-2.8) Lipase (23-300) U/L Urine RBC 0-1/hpf (0-5/HPF) Urine WBC 0-1/hpf (0-5/HPF) Ur Squamous Epith Cells 0-1 /hpf (0-5/HPF) Amorphous Sediment 1+ Urine Bacteria None seen (None) Urine Mucus 1+ H (Negative) Ur Culture Indicated? Cult not indicated Urine Dip Bedside Urine Glucose Negative Bedside Urine Bilirubin - Negative Bedside Urine Ketone - Negative Urine Specific Carlos 1.025 Bedside Urine Occult Blood ++ Bedside Urine pH 5.5 Bedside Urine Protein - Negative Bedside Urine Urobilinogen - Negative Bedside Urine Nitrite - Negative Bedside Urine Leukocytes - Negative Esterase Discharge Plan Departure Patient Disposition: Home Clinical Impression: Low back pain Qualifiers: Chronicity: unspecified Back pain laterality: left Sciatica presence: without sciatica Qualified Code(s): M54.5 - Low back pain Discharge Date/Time: 03/15/19 14:46 Interventions: ED Discharge Assessment Last Done: 03/15/19 14:46 Instructions: DI for Low Back Pain Activity Restrictions/Additional Instructions: You have been diagnosed with [ low back pain and L flank pain. Your blood test shows no acute findings but mildly elevated lipase and glucose. Your INR today is 1.2. CT scan test shows no acute findings as compared to February 06. There are nonobstructing bilateral renal stones, appy and ext looks good and there was no compression fracture in her back with degenerative disc disease]. What to do: *Take your medications as directed. *Follow up with your primary care provider today at 3:00 p.m. as scheduled. Let them know you were seen in the ED and that we asked you to be seen in follow up. *Return to ED if you have any new, worsening, or concerning symptoms, such as [increasing severe pain, chest pain, breathing difficulty, unable to tolerate fluids, tingling numbness to you're lower limbs, numbness to her groin, incontinence, any acute concerns]. Prescriptions: No Action Pradaxa 150 mg capsule 150 mg PO BID Qty: 370 RF: 0 metformin [Glucophage] 500 mg tablet 1,000 mg PO BIDCC Qty: 730 RF: 0 metoprolol succinate 50 mg tablet extended release 24 hr 50 mg PO BID Qty: 370 RF: 0 tramadol 50 mg tablet 50 mg PO TID 7 Days Qty: 21 RF: 0 lovastatin 20 mg tablet 20 mg PO QPM Qty: 90 RF: 1 atorvastatin [Lipitor] 20 mg tablet 20 mg PO BEDTIME RF: 0 glipizide [Glucotrol XL] 5 mg tablet extended release 24hr 5 mg PO DAILY RF: 0 folic acid 1 MG tablet 1 mg PO DAILY RF: 0 lisinopril 2.5 mg tablet 2.5 mg PO QAM RF: 0 metaxalone 400 mg tablet 200 mg PO TID PRN (Reason: pain) RF: 0 Referrals: Kary Comer ARNP [Primary Care Provider] - <Nahun Rolon DO - Last Filed: 03/16/19 07:33> Cosign ED Attending Saimaature Attestation: I was available for consultation during this patient's emergency department encounter
[2019-03-15 13:57] VITALS: BP 109/78; PULSE 68; RESP 17; O2SAT 99
--- NOTE | 2019-03-15 14:05 | ED_ITS ---
HPI - Back Pain/Injury <MACKENZIE Arguello - Last Filed: 03/16/19 03:10> General Chief Complaint: Back Pain/Injury Stated Complaint: PAIN IN LOWER BACK/KIDNEYS Time Seen by Provider: 03/15/19 11:03 Source: patient Mode of arrival: ambulatory Limitations: other (difficulty hearing) History of Present Illness HPI Narrative: This is a 84-year-old gentleman, smoker, presents with a friend with chief complain of left flank pain. The patient reports he thinks he may head a kidney stone. He reports having a kidney stone in distant history. However patient has been seen in ED and by his primary care provider similar back pain and has been treated with musculoskeletal pain. Patient denies urinary symptoms such as urgency, frequency, dysuria or hematuria. He denies fever, chills, nausea, vomiting. Patient reports pain increases with movement and reports pain improves with rest. He states this back/flank pain started when he was in the low pain walking up about 100 steps/stairs [place] He has been getting physical therapy for this pain but does not think it is helping him. He does have an appointment today at 3:00 p.m. with his PCP but thought something has to be done for his pain so he came in to ED. Related Data Home Medications Medication Instructions Recorded Confirmed atorvastatin [Lipitor] 20 mg PO BEDTIME 03/15/19 03/15/19 folic acid 1 mg PO DAILY 03/15/19 03/15/19 glipizide [Glucotrol XL] 5 mg PO DAILY 03/15/19 03/15/19 lisinopril 2.5 mg PO QAM 03/15/19 03/15/19 metaxalone 200 mg PO TID PRN 03/15/19 03/15/19 Previous Rx's Medication Instructions Recorded dabigatran etexilate 150 mg capsule 150 mg PO BID #370 cap 10/09/18 metformin 500 mg tablet 1,000 mg PO BIDCC #730 tab 10/09/18 metoprolol succinate ER 50 mg 50 mg PO BID #370 tab 10/09/18 tablet,extended release 24 hr lovastatin 20 mg tablet 20 mg PO QPM #90 tab 01/25/19 tramadol 50 mg tablet 50 mg PO TID 7 Days #21 tab 08/13/19 Allergies Allergy/AdvReac Type Severity Reaction Status Date / Time No Known Drug Allergies Allergy Verified 03/15/19 15:27 Review of Systems <MACKENZIE Arguello - Last Filed: 03/16/19 03:10> Review of Systems General: Denies fever, chills, fatigue, malaise, sweats. HEENT: Denies sinus pain, ear pain, sore throat, difficulty swallowing, dizziness. Respiratory: Denies dyspnea, cough, wheezing, hemoptysis, sputum. Cardiovascular: Denies chest pain, palpitations, orthopnea, edema. Gastrointestinal: Denies nausea, vomiting, abdominal pain, diarrhea, constipation, melena. : See HPI Musculoskeletal: See HPI Skin: Denies rash, skin lesions, or other. Neurologic: Denies weakness, headache, numbness, change in speech, confusion, seizures, incoordination. Psychiatric: No concerning psychosocial issues. 12-point review of systems is negative except for those stated above. PFSH <MACKENZIE Arguello - Last Filed: 03/16/19 03:10> Medical History Atrial fibrillation (Chronic Unknown) Stroke (Resolved Unknown) Hearing loss (Chronic Unknown) Cataracts, bilateral (Chronic Unknown) Diabetes (Chronic Unknown) Hyperlipemia (Chronic Unknown) Hypertension (Chronic Unknown) Essential hypertension (Chronic 07/18/16) History of stroke (Chronic 07/18/16) Pure hypercholesterolemia (Chronic 07/18/16) Chronic atrial fibrillation (Chronic 11/01/16) Type 2 diabetes mellitus without complication, without long-term current use of insulin (Chronic 02/09/17) Surgical History No history of previous surgery (Chronic) Family History Mother No problems noted. Social History Smoking Status: Current every day smoker Family History Mother No problems noted. Social History Smoking Status: Current every day smoker Exam <Alvarado MACKENZIE Odell - Last Filed: 03/16/19 03:10> Narrative Exam Narrative: GEN: Alert, oriented x 3, well appearing and nourished, and in no acute distress. Head: Normal cephalic, atraumatic. No scalp or temporal tenderness, palpable mass or rash. EYES: Pupils are equal, round, and reactive to light and accommodation. Extraocular muscles are intact bilaterally. There is no subconjunctival hemorrhage, exudate and sclera non-icteric. ENT: Nose without bleeding, purulent discharge. Mucous membrane moist, no mucosal lesion. Throat without erythema, tonsillar hypertrophy or exudate. Uvula in midline, airway patent. Neck: Trachea in midline. No JVD, non-tender without lymphadenopathy. No masses or thyroid megaly. Supple, non-tender and no meningeal signs. CARDIAC: Irregular rhythm without murmurs, gallops, or rubs. No chest wall tenderness. No peripheral edema, cyanosis or pallor. Capillary refill is less than 2 seconds. RESPIRATORY: Lungs are cleat to auscultate bilaterally. No cough, wheezes, rales, or rhonchi. No stridor, respiratory distress, increase work of breathing, or accessary muscle used. ABD: Abdomen soft, nontender and non-distended. No guarding or rebound tenderness to palpate. Bowel sounds are normal in all 4 quadrants. There is no palpable masses or organomegaly. EXT: Full painless ROM of all extremities with no loss of sensation, strength, effusion or edema. SKIN: Warm, dry, normal color for patient. No erythema, lesions or rash over visible areas. BACK: Nontender to palpate without deformity or crepitance. No flank tenderness with percussion. Leg raise test negative. Paraspinal muscle feels tight to palpate without spasm. NEUROLOGICAL: Alert and oriented to place, time and person. Sensation and motor function intact bilaterally. No facial droops, dysphasia. PSYCHIATRIC: Good judgement and reason, without hallucinations, abnormal affect or abnormal behaviors during the examination. Patient is not suicidal. Initial Vital Signs Initial Vital Signs: Vital Signs Temperature 98.0 F 03/15/19 11:13 Pulse Rate 82 03/15/19 11:13 Respiratory Rate 18 03/15/19 11:13 Blood Pressure 115/64 03/15/19 11:13 Pulse Oximetry 99 03/15/19 11:13 <aNhun Rolon DO - Last Filed: 03/16/19 07:33> Initial Vital Signs Initial Vital Signs: Vital Signs Temperature 98.0 F 03/15/19 11:13 Pulse Rate 82 03/15/19 11:13 Respiratory Rate 18 03/15/19 11:13 Blood Pressure 115/64 03/15/19 11:13 Pulse Oximetry 99 03/15/19 11:13 Course <MACKENZIE Arguello - Last Filed: 03/16/19 03:10> Orders Ordered: Discontinued Medications Cyclobenzaprine HCl (Flexeril) 5 mg PO NOW ONE Stop: 03/15/19 11:57 Last Admin: 03/15/19 12:26 Dose: 5 mg Ketorolac Tromethamine (Toradol) 30 mg IM NOW ONE Stop: 03/15/19 11:57 Last Admin: 03/15/19 12:26 Dose: 30 mg Vital Signs - 8 hr 03/15/19 11:13 03/15/19 12:17 Temperature 98.0 F Pulse Rate 82 66 Respiratory Rate 18 12 Blood Pressure 115/64 Blood Pressure [Left Arm] 140/80 Pulse Oximetry 99 99 <Nahun Rolon DO - Last Filed: 03/16/19 07:33> Orders Ordered: Discontinued Medications Cyclobenzaprine HCl (Flexeril) 5 mg PO NOW ONE Stop: 03/15/19 11:57 Last Admin: 03/15/19 12:26 Dose: 5 mg Ketorolac Tromethamine (Toradol) 30 mg IM NOW ONE Stop: 03/15/19 11:57 Last Admin: 03/15/19 12:26 Dose: 30 mg Vital Signs - 8 hr 03/15/19 11:13 03/15/19 12:17 Temperature 98.0 F Pulse Rate 82 66 Respiratory Rate 18 12 Blood Pressure 115/64 Blood Pressure [Left Arm] 140/80 Pulse Oximetry 99 99 MDM - Back Pain/Injury <MACKENZIE Arguello - Last Filed: 03/16/19 03:10> Differential Diagnosis Differential diagnosis: Likely strain of lumbar region, renal colic, pyel onephritis and AAA Medical Records Attestation: I reviewed the patient's medical records. Lab Data Attestation: I reviewed the patient's lab results. Result diagrams: 03/15/19 11:52 03/15/19 11:52 Lab Results 03/15/19 03/15/19 03/15/19 Range/Units 11:52 11:52 11:52 WBC 7.3 (4.5-11.0) X10^3/uL RBC 4.48 L (4.5-5.9) X10^6/uL Hgb 14.4 (13.5-17.5) g/dL Hct 41.7 (41-53) % MCV 93.1 (80-100) fL MCH 32.2 (26-34) PG MCHC 34.6 (30-36) % RDW 13.8 (11.6-14.8) % Plt Count 146 L (150-400) X10^3/uL Neut % (Auto) 53.2 (50-75) % Lymph % (Auto) 34.1 (25-40) % Grainger % (Auto) 7.6 (3-14) % Eos % (Auto) 4.4 H (2-4) % Baso % (Auto) 0.7 (0-2) % Neut # (Auto) 3900 (9841-2098) /uL Lymph # (Auto) 2500 (7228-2587) /uL Grainger # (Auto) 600 (0-900) /uL Eos # (Auto) 300 (0-450) /uL Baso # (Auto) 100 (0-100) /uL PT 13.8 H (10.1-12.7) SECONDS INR 1.2 (0.9-1.3) APTT 47 H (26.4-36.2) SECONDS Sodium 139 (137-145) mmol/L Potassium 4.8 (3.4-5.1) mmol/L Chloride 100 (98-107) mmol/L Carbon Dioxide 29 (22-32) mmol/L BUN 17 (9-20) mg/dL Creatinine 0.90 (0.66-1.25) mg/dL Estimated GFR > 60.0 (>60) mL/min BUN/Creatinine Ratio 18.9 (6-22) Glucose 147 H (80-110) mg/dL Calcium 9.5 (8.4-10.2) mg/dL Total Bilirubin 0.9 (0.2-1.3) mg/dL AST 22 (17-59) IU/L ALT 25 (21-72) IU/L Alkaline Phosphatase 39 (38-126) U/L Total Protein 7.0 (6.3-8.2) g/dL Albumin 4.2 (3.5-5.0) g/dL Globulin 2.8 (1.7-4.1) g/dL Albumin/Globulin Ratio 1.5 (1.0-2.8) Lipase 337 H (23-300) U/L Urine RBC (0-5/HPF) Urine WBC (0-5/HPF) Ur Squamous Epith Cells (0-5/HPF) Amorphous Sediment Urine Bacteria (None) Urine Mucus (Negative) Ur Culture Indicated? 03/15/19 Range/Units 12:57 WBC (4.5-11.0) X10^3/uL RBC (4.5-5.9) X10^6/uL Hgb (13.5-17.5) g/dL Hct (41-53) % MCV (80-100) fL MCH (26-34) PG MCHC (30-36) % RDW (11.6-14.8) % Plt Count (150-400) X10^3/uL Neut % (Auto) (50-75) % Lymph % (Auto) (25-40) % Grainger % (Auto) (3-14) % Eos % (Auto) (2-4) % Baso % (Auto) (0-2) % Neut # (Auto) (0808-9475) /uL Lymph # (Auto) (6601-9743) /uL Grainger # (Auto) (0-900) /uL Eos # (Auto) (0-450) /uL Baso # (Auto) (0-100) /uL PT (10.1-12.7) SECONDS INR (0.9-1.3) APTT (26.4-36.2) SECONDS Sodium (137-145) mmol/L Potassium (3.4-5.1) mmol/L Chloride (98-107) mmol/L Carbon Dioxide (22-32) mmol/L BUN (9-20) mg/dL Creatinine (0.66-1.25) mg/dL Estimated GFR (>60) mL/min BUN/Creatinine Ratio (6-22) Glucose (80-110) mg/dL Calcium (8.4-10.2) mg/dL Total Bilirubin (0.2-1.3) mg/dL AST (17-59) IU/L ALT (21-72) IU/L Alkaline Phosphatase (38-126) U/L Total Protein (6.3-8.2) g/dL Albumin (3.5-5.0) g/dL Globulin (1.7-4.1) g/dL Albumin/Globulin Ratio (1.0-2.8) Lipase (23-300) U/L Urine RBC 0-1/hpf (0-5/HPF) Urine WBC 0-1/hpf (0-5/HPF) Ur Squamous Epith Cells 0-1 /hpf (0-5/HPF) Amorphous Sediment 1+ Urine Bacteria None seen (None) Urine Mucus 1+ H (Negative) Ur Culture Indicated? Cult not indicated Urine Dip Bedside Urine Glucose Negative Bedside Urine Bilirubin - Negative Bedside Urine Ketone - Negative Urine Specific [place] 1.025 Bedside Urine Occult Blood ++ Bedside Urine pH 5.5 Bedside Urine Protein - Negative Bedside Urine Urobilinogen - Negative Bedside Urine Nitrite - Negative Bedside Urine Leukocytes - Negative Esterase Imaging Data CT-Abd/pelvis: Radiologist's impression: Chart Viewer Diagnostics DATE TYPE STATUS AUTHOR Hx 03/15/19 13:21 Loretta Henry 02/06/19 15:35 Luis Ayala Richard K 84, M0 1935 REG ER, ED.LOC - Main ED: R10 165.1cm 35.426kg BMI: 13.0kg/m? Back Pain/Injury Search Chart No Data to Display ONSET Unknown Unknown Unknown Unknown Unknown Unknown Unknown 11/27/15 11/27/15 12/08/15 07/18/16 07/18/16 07/18/16 07/18/16 11/01/16 02/09/17 Today 13:57 Favian Robin 84 M [address] [address] [address] Scan Report Signed Patient: Favian Robin KMR#: [id number] : 1935cct:[id number] Age/Sex: 84 / MDate of Service: 03/15/19 Loc: ED Accession Number: [id number] Procedure: CT kidney ureter bladder (KUB) Ordering Provider: Alvarado Odell PROCEDURE: CT KIDNEY URETER BLADDER (KUB) INDICATIONS: L flank pain with hematuria TECHNIQUE: Noncontrast 5 mm thick sections acquired from the diaphragms to the symphysis. 5 mm thick coronal and sagittal reformats were then performed. For radiation dose reduction, the following was used: automated exposure control, adjustment of mA and/or kV according to patient size. COMPARISON: [facility], CT, CT ABDOMEN PELVIS WO CON, 02/06/2019, 15:40. FINDINGS: Image quality: Excellent. Lung bases: Lung bases are clear. Heart size is normal. The atherosclerotic calcifications noted in the visualized coronary vasculature. Urinary system: Both kidneys are normal in size. Cluster of stones measuring approximately 1.1 cm node in the inferior pole of the left kidney. 2 mm stone is noted in the midpole of left kidney. 2 mm stone is noted in the midpole of the right k idney. 4.7 cm left renal cyst is stable. No hydronephrosis or perinephric fat stranding. Both ureters appear non-dilated throughout their expected courses. Bladder wall thickness is normal; no calcified bladder stones. Other solid organs: Liver is normal in size. Cysts in the left hepatic lobe is stable. Gallbladder is within normal limits. Pancreas is normal in contours. Spleen is normal in size. No adrenal nodules. Peritoneum and bowel: Unenhanced bowel loops demonstrate normal wall thickness and caliber. Scattered colonic diverticuli without evidence of diverticulitis. No free fluid or air. Appendix is normal. Nodes and vessels: No retroperitoneal or mesenteric adenopathy by size criteria. Aorta and inferior vena cava are normal in caliber. Scattered atherosclerotic calcifications involving the abdominal and pelvic vasculature. Abdominal wall: No ventral hernias. Pelvis: No free pelvic fluid. No inguinal adenopathy. Small fat containing left inguinal hernia. Bones: No suspicious bony lesions. No vertebral body compression fractures. Sp ine degenerative disc disease and facet arthropathy. IMPRESSION: 1. Stable examination compared to 02/06/2019 with no acute disease process. 2. Bilateral nonobstructing renal stones. 3. The appendix is normal 4. No free fluid or free air. 5. No dilated loops of bowel. 6. Colonic diverticulosis without evidence diverticulitis. Dictated by: Loretta Henry MD, PhD on 03/15/2019 at 13:48 Approved by: Loretta Henry MD, PhD on 03/15/2019 at 13:57 ECG Data Attestation: I personally reviewed and interpreted this ECG as follows: Prior ECG tracings: available for review Interpretation: Atrial fibrillation rate at 82, noramal axis, no ST elevated or deprassion. Previous EKG as sinus bradycardia. MDM Narrative Medical decision making narrative: This is a 84-year-old male presents with left side low back pain consistent with musculoskeletal in origin. Patient reports movement aggravates pain and pain improves with rest. He has an appointment with his primary care physician at 3:00 p.m. today but his pain was so severe that he came in to ED for treatment and evaluation. He has been getting physical therapy for this back pain but he thinks this has been really helping him. He denied urinary symptoms including hematuria with this back pain. Patient reports he has history of kidney stones and is wondering the back pain is caused by this. Patient denies constitutional symptoms or rash on his back. His POC urine test shows 2+ blood obvious infection. CT scan was obtained and compared with02/06/19. The CT exam indicates no acute disease process since the last CT, bilateral nonobstructing renal stones, colonic diverticulosis without evidence of diverticulitis, normal size of aorta and inferior vena cava. Patient reports he is known to have kidney stones in the past. His blood tests for CBC, chemistry, coagulation were unremarkable. The patient was treated with Ketorlac 30mg IM injection and 5 mg of Flexeril. Patient reports his pain is improved bit. Patient was discharged to follow up with his doctor today. Patient assured that physical therapy, and NSAIDs and occasional muscle relaxant are 1st line of back pain treatment. Patient verbalized the understanding and questions answered to apparent satisfaction. Flexeril medication precautions were discussed with the patient. I discussed return precautions with the patient and friend. <Nahun Rolon, - Last Filed: 03/16/19 07:33> Lab Data Lab Results 03/15/19 03/15/19 03/15/19 Range/Units 11:52 11:52 11:52 WBC 7.3 (4.5-11.0) X10^3/uL RBC 4.48 L (4.5-5.9) X10^6/uL Hgb 14.4 (13.5-17.5) g/dL Hct 41.7 (41-53) % MCV 93.1 (80-100) fL MCH 32.2 (26-34) PG MCHC 34.6 (30-36) % RDW 13.8 (11.6-14.8) % Plt Count 146 L (150-400) X10^3/uL Neut % (Auto) 53.2 (50-75) % Lymph % (Auto) 34.1 (25-40) % Grainger % (Auto) 7.6 (3-14) % Eos % (Auto) 4.4 H (2-4) % Baso % (Auto) 0.7 (0-2) % Neut # (Auto) 3900 (5050-3465) /uL Lymph # (Auto) 2500 (7759-6837) /uL Grainger # (Auto) 600 (0-900) /uL Eos # (Auto) 300 (0-450) /uL Baso # (Auto) 100 (0-100) /uL PT 13.8 H (10.1-12.7) SECONDS INR 1.2 (0.9-1.3) APTT 47 H (26.4-36.2) SECONDS Sodium 139 (137-145) mmol/L Potassium 4.8 (3.4-5.1) mmol/L Chloride 100 (98-107) mmol/L Carbon Dioxide 29 (22-32) mmol/L BUN 17 (9-20) mg/dL Creatinine 0.90 (0.66-1.25) mg/dL Estimated GFR > 60.0 (>60) mL/min BUN/Creatinine Ratio 18.9 (6-22) Glucose 147 H (80-110) mg/dL Calcium 9.5 (8.4-10.2) mg/dL Total Bilirubin 0.9 (0.2-1.3) mg/dL AST 22 (17-59) IU/L ALT 25 (21-72) IU/L Alkaline Phosphatase 39 (38-126) U/L Total Protein 7.0 (6.3-8.2) g/dL Albumin 4.2 (3.5-5.0) g/dL Globulin 2.8 (1.7-4.1) g/dL Albumin/Globulin Ratio 1.5 (1.0-2.8) Lipase 337 H (23-300) U/L Urine RBC (0-5/HPF) Urine WBC (0-5/HPF) Ur Squamous Epith Cells (0-5/HPF) Amorphous Sediment Urine Bacteria (None) Urine Mucus (Negative) Ur Culture Indicated? 03/15/19 Range/Units 12:57 WBC (4.5-11.0) X10^3/uL RBC (4.5-5.9) X10^6/uL Hgb (13.5-17.5) g/dL Hct (41-53) % MCV (80-100) fL MCH (26-34) PG MCHC (30-36) % RDW (11.6-14.8) % Plt Count (150-400) X10^3/uL Neut % (Auto) (50-75) % Lymph % (Auto) (25-40) % Grainger % (Auto) (3-14) % Eos % (Auto) (2-4) % Baso % (Auto) (0-2) % Neut # (Auto) (4688-6389) /uL Lymph # (Auto) (5442-1582) /uL Grainger # (Auto) (0-900) /uL Eos # (Auto) (0-450) /uL Baso # (Auto) (0-100) /uL PT (10.1-12.7) SECONDS INR (0.9-1.3) APTT (26.4-36.2) SECONDS Sodium (137-145) mmol/L Potassium (3.4-5.1) mmol/L Chloride (98-107) mmol/L Carbon Dioxide (22-32) mmol/L BUN (9-20) mg/dL Creatinine (0.66-1.25) mg/dL Estimated GFR (>60) mL/min BUN/Creatinine Ratio (6-22) Glucose (80-110) mg/dL Calcium (8.4-10.2) mg/dL Total Bilirubin (0.2-1.3) mg/dL AST (17-59) IU/L ALT (21-72) IU/L Alkaline Phosphatase (38-126) U/L Total Protein (6.3-8.2) g/dL Albumin (3.5-5.0) g/dL Globulin (1.7-4.1) g/dL Albumin/Globulin Ratio (1.0-2.8) Lipase (23-300) U/L Urine RBC 0-1/hpf (0-5/HPF) Urine WBC 0-1/hpf (0-5/HPF) Ur Squamous Epith Cells 0-1 /hpf (0-5/HPF) Amorphous Sediment 1+ Urine Bacteria None seen (None) Urine Mucus 1+ H (Negative) Ur Culture Indicated? Cult not indicated Urine Dip Bedside Urine Glucose Negative Bedside Urine Bilirubin - Negative Bedside Urine Ketone - Negative Urine Specific [place] 1.025 Bedside Urine Occult Blood ++ Bedside Urine pH 5.5 Bedside Urine Protein - Negative Bedside Urine Urobilinogen - Negative Bedside Urine Nitrite - Negative Bedside Urine Leukocytes - Negative Esterase Discharge Plan Departure Patient Disposition: Home Clinical Impression: Low back pain Qualifiers: Chronicity: unspecified Back pain laterality: left Sciatica presence: without sciatica Qualified Code(s): M54.5 - Low back pain Discharge Date/Time: 03/15/19 14:46 Interventions: ED Discharge Assessment Last Done: 03/15/19 14:46 Instructions: DI for Low Back Pain Activity Restrictions/Additional Instructions: You have been diagnosed with [ low back pain and L flank pain. Your blood test shows no acute findings but mildly elevated lipase and glucose. Your INR today is 1.2. CT scan test shows no acute findings as compared to February 06. There are nonobstructing bilateral renal stones, appy and ext looks good and there was no compression fracture in her back with degenerative disc disease]. What to do: *Take your medications as directed. *Follow up with your primary care provider today at 3:00 p.m. as scheduled. Let them know you were seen in the ED and that we asked you to be seen in follow up. *Return to ED if you have any new, worsening, or concerning symptoms, such as [increasing severe pain, chest pain, breathing difficulty, unable to tolerate fluids, tingling numbness to you're lower limbs, numbness to her groin, incontinence, any acute concerns]. Prescriptions: No Action Pradaxa 150 mg capsule 150 mg PO BID Qty: 370 RF: 0 metformin [Glucophage] 500 mg tablet 1,000 mg PO BIDCC Qty: 730 RF: 0 metoprolol succinate 50 mg tablet extended release 24 hr 50 mg PO BID Qty: 370 RF: 0 tramadol 50 mg tablet 50 mg PO TID 7 Days Qty: 21 RF: 0 lovastatin 20 mg tablet 20 mg PO QPM Qty: 90 RF: 1 atorvastatin [Lipitor] 20 mg tablet 20 mg PO BEDTIME RF: 0 glipizide [Glucotrol XL] 5 mg tablet extended release 24hr 5 mg PO DAILY RF: 0 folic acid 1 MG tablet 1 mg PO DAILY RF: 0 lisinopril 2.5 mg tablet 2.5 mg PO QAM RF: 0 metaxalone 400 mg tablet 200 mg PO TID PRN (Reason: pain) RF: 0 Referrals: Kary Comer ARNP [Primary Care Provider] - <Nahun Rolon DO - Last Filed: 03/16/19 07:33> Cosign ED Attending Lynsey Attestation: I was available for consultation during this patient's emergency department encounter
[2019-03-15 14:46] VITALS: BP 110/85; PULSE 70; RESP 18; O2SAT 99
== END 2019-03-15 14:46 | disposition home or self-care (01) ==
PROVIDERS: Emergency Medicine; Emergency Provider Nurse Practitioner Family; PCP Nurse Practitioner
DX: M54.5 Low back pain (principal); R10.9 Unspecified abdominal pain
CPT/HCPCS: 36415; 74176; 80053; 81003; 81015; 83690; 85025; 85610; 85730; 93005; 93010; 96372; 99282; 99285; J1885

== ENCOUNTER → 2020-02-06 11:15 | Outpatient (CLI) | payer MEDICARE, OTHER, SELFPAY ==
[2020-02-06 12:14] LABS: Hemoglobin A1C% w Est Avg Glu 6.2 % (4.0-6.0)
[2020-02-06 12:40] LABS: BUN Creatinine Ratio 21.9 (6-22); Blood Urea Nitrogen 16 mg/dL (9-20); Calcium 9.8 mg/dL (8.4-10.2); Carbon Dioxide 26 mmol/L (22-32); Chloride 104 mmol/L (98-107); Estimated Glomerular Filt Rate > 60.0 mL/min (>60); Glucose 94 mg/dL (80-110); HEMOLYSIS 20 (0-50); Potassium 4.3 mmol/L (3.4-5.1); Sodium 138 mmol/L (137-145)
[2020-02-06 16:08] LABS: Microalbumin Urine Random < 0.6 mg/dL (0-1.6)
== END ==
PROVIDERS: PCP Student in an Organized Health Care Education/Training Program; Referring Provider Student in an Organized Health Care Education/Training Program; Visit Provider Student in an Organized Health Care Education/Training Program
DX: E11.9 Type 2 diabetes mellitus without complications (principal); E78.5 Hyperlipidemia, unspecified; I10 Essential (primary) hypertension
CPT/HCPCS: 36415; 80048; 82043; 82570; 83036

== ENCOUNTER 2020-10-12 10:48 | Emergency (ER) | payer MEDICARE, OTHER, SELFPAY ==
[2020-10-12] VITALS (8 sets, daily range): BP systolic 119–132; BP diastolic 78–90; PULSE 78–129; RESP 7–19; O2SAT 99–100
--- NOTE | 2020-10-12 11:06 | ED.ABDPAIN ---
HPI - Abdominal Pain General Chief Complaint: Abdominal Pain Stated Complaint: LLQ pain, started a week ago Time Seen by Provider: 10/12/20 10:56 Source: patient and family Mode of arrival: Ambulatory Limitations: no limitations History of Present Illness HPI narrative: Patient is a geovany 85-year-old male, the patient has history of hypertension, hyperlipidemia, diabetes, stroke, AFib on Pradaxa presenting today with left-sided pain ongoing for 1 week. He says progressively getting worse it seems to be on his left lateral side not quite on his flank and certainly not left lower quadrant. He says he has history of kidney stones as well this does not seem like a kidney stone. His he denies any nausea or vomiting. He states he has been having bowel movements but has not had 1 today. He has not had any fever or chills no chest pain or shortness of breath. He denies any injury. He says the pain has just progressively gotten worse. He is on a pain pill which does seem to help with his pain. MD complaint: abdominal pain Onset (ago): week(s) (1) Pain Consistency: constant Severity: moderate Relieving factors: medication Associated symptoms: denies other symptoms Related Data Home Medications Medication Instructions Recorded Confirmed folic acid 1 mg PO DAILY 03/15/19 08/26/20 Previous Rx's Medication Instructions Recorded metaxalone 400 mg tablet 200 mg PO TID PRN #135 tab 02/09/20 dabigatran etexilate 150 mg capsule 150 mg PO BID #180 cap 03/06/20 lisinopril 2.5 mg tablet 2.5 mg PO DAILY #90 tab 03/06/20 lovastatin 20 mg tablet 20 mg PO BEDTIME #90 tab 03/06/20 metoprolol succinate 50 mg 50 mg PO DAILY #180 tab 03/06/20 tablet,extended release 24 hr metformin 1,000 mg tablet 1,000 mg PO BID #180 tab 08/31/20 ciprofloxacin HCl [Cipro] 500 mg PO Q12H #14 tab 10/12/20 metronidazole [Flagyl] 500 mg PO TID #21 tab 10/12/20 Allergies Allergy/AdvReac Type Severity Reaction Status Date / Time No Known Drug Allergies Allergy Verified 08/26/20 15:19 Review of Systems Review of Systems ROS Unobtainable: All systems reviewed & are unremarkable except as noted in HPI and below Constitutional Constitutional: Denies chills, Denies fever(s), Denies lethargy and Denies weakness ENT Ears, Nose, Mouth, and Throat: Denies change in voice, Denies neck pain and Denies sore throat Cardiovascular Cardiovascular: Denies chest pain, Denies irregular heart rhythm, Denies lightheadedness, Denies palpitations, Denies dyspnea, Denies dyspnea on exertion and Denies orthopnea Respiratory Respiratory: Denies cough, Denies dyspnea, Denies dyspnea on exertion and Denies wheezing Gastrointestinal Gastrointestinal: Reports as per HPI, Reports abdominal pain, Denies change in bowel habits, Denies diarrhea, Denies nausea and Denies vomiting Genitourinary Genitourinary: Denies hematuria and Denies dysuria Genitourinary: Denies hematuria and Denies dysuria Musculoskeletal Musculoskeletal: Denies back pain, Denies myalgias and Denies neck pain Integumentary/Breasts Skin/Breast: Denies pruritus, Denies erythema, Denies rash and Denies wounds Neurologic Neurologic: Denies weakness Endocrine Endocrine: Denies palpitations Allergic/Immunologic Allergic/Immunologic: Denies wheezing Patient History Medical History (Updated 10/12/20 @ 13:11 by Violet Dye DO) Atrial fibrillation (Unknown) Cataracts, bilateral (Unknown) Chronic atrial fibrillation (11/01/16) Diabetes (Unknown) Essential hypertension (07/18/16) Hearing loss (Unknown) History of stroke (07/18/16) Hyperlipemia (Unknown) Hypertension (Unknown) Pure hypercholesterolemia (07/18/16) Stroke (Unknown) Type 2 diabetes mellitus without complication, without long-term current use of insulin (02/09/17) Surgical History No history of previous surgery Family History Mother No problems noted. Social History household members: family Smoking Status: Current every day smoker Smoking Status: Current every day smoker alcohol intake frequency: 0-2 drinks per day Substance Use Type: does not use Exam Initial Vital Signs Initial Vital Signs: Vital Signs Pulse Rate 78 10/12/20 10:50 Respiratory Rate 14 10/12/20 10:50 Blood Pressure 121/79 10/12/20 10:50 Pulse Oximetry 99 10/12/20 10:50 GENERAL: Alert pleasant 85-year-old male and in no acute distress. HEENT: Head atraumatic,EOMI, pupils reactive, face symmetric, moist mucous membranes CARDIOVASCULAR: Regular rate and rhythm without murmurs, rubs or gallops. RESPIRATORY: Breath sounds equal bilaterally, no wheezes rales or rhonchi. ABDOMEN: Soft, left-sided pain sort of up on her ribs no left upper quadrant pain no left lower quadrant pain no guarding or rebound : No CVA tenderness EXTREMITIES: Normal range of motion, no clubbing or edema. Neurovascularly intact NEUROLOGICAL: Alert and oriented x4.Normal gait and speech. SKIN: Warm, dry, no laceration, no petechiae, no rashes or lesions. Course Orders Ordered: ED Orders 10/12/20 11:09 Complete Blood Count AUTO DIFF Stat Comprehensive Metabolic Panel Stat Lipase Stat Troponin & CK Cardiac Panel Stat 10/12/20 11:14 EKG-12 Lead Stat 10/12/20 11:49 CT abdomen pelvis w con Stat 10/12/20 11:50 Urine Microscopic Stat 10/12/20 13:11 Consult to [employer] - Household Appliances Salesperson Stat 10/12/20 14:24 Consult to Home Health Stat Vital Signs Vital signs: Vital Signs - 8 hr 10/12/20 11:36 10/12/20 12:00 10/12/20 12:02 Pulse Rate 129 H 101 H 101 H Respiratory Rate 14 9 L Blood Pressure 132/90 Pulse Oximetry 100 99 100 10/12/20 12:30 10/12/20 13:00 10/12/20 13:30 Pulse Rate 83 87 90 Respiratory Rate 10 L 7 L 17 Blood Pressure 120/78 Pulse Oximetry 100 99 100 10/12/20 13:31 Pulse Rate 95 H Respiratory Rate 19 Blood Pressure 119/86 Pulse Oximetry 100 MDM - Abdominal Pain Lab Data Attestation: I reviewed the patient's lab results. Result diagrams: 10/12/20 11:09 10/12/20 11:09 Labs: Lab Results 10/12/20 10/12/20 10/12/20 Range/Units 11:09 11:09 11:50 WBC 5.9 (4.5-11.0) X10^3/uL RBC 4.38 L (4.5-5.9) X10^6/uL Hgb 13.8 (13.5-17.5) g/dL Hct 40.5 L (41-53) % MCV 92.5 (80-100) fL MCH 31.6 (26-34) PG MCHC 34.2 (30-36) % RDW 13.1 (11.6-14.8) % Plt Count 159 (150-400) X10^3/uL Neut % (Auto) 55.7 (50-75) % Lymph % (Auto) 32.2 (25-40) % [place] % (Auto) 7.5 (3-14) % Eos % (Auto) 3.6 (2-4) % Baso % (Auto) 1.0 (0-2) % Neut # (Auto) 3300 (0419-7792) /uL Lymph # (Auto) 1900 (7683-2510) /uL [place] # (Auto) 400 (0-900) /uL Eos # (Auto) 200 (0-450) /uL Baso # (Auto) 100 (0-100) /uL Sodium 136 L (137-145) mmol/L Potassium 4.6 (3.4-5.1) mmol/L Chloride 102 (98-107) mmol/L Carbon Dioxide 31 (22-32) mmol/L BUN 12 (9-20) mg/dL Creatinine 0.78 (0.66-1.25) mg/dL Estimated GFR > 60.0 (>60) mL/min BUN/Creatinine Ratio 15.4 (6-22) Glucose 202 H (80-110) mg/dL Calcium 9.3 (8.4-10.2) mg/dL Total Bilirubin 0.6 (0.2-1.3) mg/dL AST 21 (17-59) IU/L ALT 13 (<50) IU/L Alkaline Phosphatase 43 (38-126) U/L Total Creatine Kinase 45 L (55-170) U/L CK-MB (CK-2) TNP CK-MB (CK-2) Rel Index TNP Troponin I < 0.012 (0.01-0.034) ng/mL Total Protein 6.8 (6.3-8.2) g/dL Albumin 4.1 (3.5-5.0) g/dL Globulin 2.7 (1.7-4.1) g/dL Albumin/Globulin Ratio 1.5 (1.0-2.8) Lipase 124 (23-300) U/L Urine RBC 1-5/hpf (0-5/HPF) Urine WBC None seen (0-5/HPF) Urine Bacteria None seen (None) Ur Culture Indicated? Cult not indicated Point of care testing: Urine Dip Bedside Urine Glucose 250 mg/dl Bedside Urine Bilirubin - Negative Bedside Urine Ketone - Negative Urine Specific [place] 1.020 Bedside Urine Occult Blood ++ Bedside Urine pH 6 Bedside Urine Protein - Negative Bedside Urine Urobilinogen - Negative Bedside Urine Nitrite - Negative Bedside Urine Leukocytes - Negative Esterase Imaging Data CT scan - abdomen/pelvis: Radiologist's Impression: PROCEDURE: CT ABDOMEN PELVIS W CON INDICATIONS: left sided pain TECHNIQUE: After the administration of intravenous contrast, 5 mm thick sections acquired from the diaphragm to the symphysis. 5 mm coronal and sagittal reformats were acquired. For radiation dose reduction, the following was used: automated exposure control, adjustment of mA and/or kV according to patient size. COMPARISON: None. FINDINGS: Image quality: Excellent. ABDOMEN: Lung bases: Lung bases are clear. Heart size is normal. Solid organs: Liver is normal in size . 1.3 cm well-circumscribed hypodensity involving left hepatic dome is seen series 2, image 10. Gallbladder is within normal limits. Biliary system is non dilated. Pancreas enhances normally. Spleen is normal in size and enhancement. No adrenal nodules. Kidneys demonstrate normal size and enhancement, without hydronephrosis. Multiple nonobstructing left renal calculi are seen measures up to 1.2 cm in lower pole of left kidney. Prominent left peripelvic renal cyst measures 4.6 cm in size is also seen. Peritoneum and bowel: There is no evidence of bowel obstruction. No gross gastric or small bowel wall thickening. There is suggestion of mild diffuse descending colon wall and distal transverse colon wall thickening. Sigmoid colon wall thickening and edema is also seen with narrowing of the lumen. No free fluid or free air. No abscess collection. Appendix is visualized and is within normal limits. Mild sigmoid diverticulosis is seen, no CT evidence of acute diverticulitis. Nodes and vessels: No retroperitoneal or mesenteric adenopathy by size criteria. Aorta and inferior vena cava are normal in size. Miscellaneous: No ventral hernias. PELVIS: Genitourinary: Mild diffuse bladder wall thickening is seen, no discrete bladder wall lesion. Miscellaneous: No inguinal hernias or adenopathy. Bones: No suspicious bony lesions. No vertebral body compression fractures. IMPRESSION: 1. Finding is suggestive of left-sided colitis. No abscess collection. No free fluid or free air. Normal appendix. Mild sigmoid diverticulosis without evidence of acute diverticulitis. 2. Multiple left-sided nonobstructing renal calculi and prominent left peripelvic renal cyst as above. No obstructing renal stone or hydronephrosis. Mild diffuse bladder wall thickening which may be due to under distension. Low-grade cystitis cannot be excluded. 3. Possible small cyst in left hepatic dome as above. Dictated by: Ab Whiting M.D. on 10/12/2020 at 11:41 ECG Data Attestation: I personally reviewed and interpreted this ECG as follows: Prior ECG tracings: available for review Interpretation: Rate [address] changes similar to previous EKG MDM Narrative Medical decision making narrative: Patient is found to have colitis. It has been ongoing for about a week but he has no leukocytosis or fever at this time will treat with antibiotics. He lives with granddaughter, granddaughter states that she would like some help at home. Social Work has been in and arranged for [facility]. Discharge Plan Departure Patient Disposition: Home Clinical Impression: Colitis Instructions: DI for Colitis Activity Restrictions/Additional Instructions: *You have been diagnosed with colitis *What to do: You have inflammation and small infection in your intestine which is likely causing her pain. As the infection clears pain will get better. Home health care is being arranged for you. *Continue to take medications as directed-> SENT TO [facility] Flagyl 500 mg 3 times a day for 7 days Cipro 500 mg twice a day for 7 days Tylenol 650 mg every 4-6 hours if needed for [id number] pain *Follow up with your primary care provider in 2-3 days *Return to ER if you should have increasing pain, vomiting, bloody stool or any new, worsening or concerning symptoms Prescriptions: New ciprofloxacin HCl [Cipro] 500 mg tablet 500 mg PO Q12H Qty: 14 RF: 0 metronidazole [Flagyl] 500 mg tablet 500 mg PO TID Qty: 21 RF: 0 No Action Pradaxa 150 mg capsule 150 mg PO BID Qty: 180 RF: 3 lisinopril 2.5 mg tablet 2.5 mg PO DAILY Qty: 90 RF: 3 lovastatin 20 mg tablet 20 mg PO BEDTIME Qty: 90 RF: 3 metoprolol succinate 50 mg tablet extended release 24 hr 50 mg PO DAILY Qty: 180 RF: 3 metformin 1,000 mg tablet 1,000 mg PO BID Qty: 180 RF: 3 metaxalone 400 mg tablet 200 mg PO TID PRN (Reason: pain) Qty: 135 RF: 3 folic acid 1 MG tablet 1 mg PO DAILY RF: 0 Referrals: Luis Woodard MD [Primary Care Provider] -
[2020-10-12 11:20] LABS: Add Manual Diff / Slide Review NO; Basophils Absolute Auto 100 /uL (0-100); Eosinophils Absolute Auto 200 /uL (0-450); Eosinophils Percent Auto 3.6 % (2-4); Hematocrit 40.5 % (41-53); Hemoglobin 13.8 g/dL (13.5-17.5); Lymphocytes Absolute Auto 1900 /uL (1100-4500); Lymphocytes Percent Auto 32.2 % (25-40); Mean Corpuscular HGB Conc 34.2 % (30-36); Mean Corpuscular Hemoglobin 31.6 PG (26-34); Mean Corpuscular Volume 92.5 fL (80-100); Monocytes Absolute Auto 400 /uL (0-900); Monocytes Percent Auto 7.5 % (3-14); Neutrophils Absolute Auto 3300 /uL (1500-7000); Neutrophils Percent Auto 55.7 % (50-75); Platelet Count 159 X10^3/uL (150-400); Red Blood Cell Count 4.38 X10^6/uL (4.5-5.9); Red Cell Distribution Width 13.1 % (11.6-14.8); White Blood Cell Count 5.9 X10^3/uL (4.5-11.0)
[2020-10-12 11:27] LABS: Alanine Aminotransferase 13 IU/L (<50); Albumin 4.1 g/dL (3.5-5.0); Albumin Globulin Ratio 1.5 (1.0-2.8); Alkaline Phosphatase 43 U/L (38-126); Aspartate Aminotransferase 21 IU/L (17-59); BUN Creatinine Ratio 15.4 (6-22); Bilirubin Total 0.6 mg/dL (0.2-1.3); Blood Urea Nitrogen 12 mg/dL (9-20); Calcium 9.3 mg/dL (8.4-10.2); Carbon Dioxide 31 mmol/L (22-32); Chloride 102 mmol/L (98-107); Creatine Kinase 45 U/L (55-170); Estimated Glomerular Filt Rate > 60.0 mL/min (>60); Globulin 2.7 g/dL (1.7-4.1); Glucose 202 mg/dL (80-110); HEMOLYSIS 32 (0-50); Lipase 124 U/L (23-300); Potassium 4.6 mmol/L (3.4-5.1); Sodium 136 mmol/L (137-145); Total Protein 6.8 g/dL (6.3-8.2)
[2020-10-12 11:39] LABS: Troponin I < 0.012 ng/mL (0.01-0.034)
--- NOTE | 2020-10-12 11:49 | DI.CT.S_ITS ---
PROCEDURE: CT ABDOMEN PELVIS W CON INDICATIONS: left sided pain TECHNIQUE: After the administration of intravenous contrast, 5 mm thick sections acquired from the diaphragm to the symphysis. 5 mm coronal and sagittal reformats were acquired. For radiation dose reduction, the following was used: automated exposure control, adjustment of mA and/or kV according to patient size. COMPARISON: None. FINDINGS: Image quality: Excellent. ABDOMEN: Lung bases: Lung bases are clear. Heart size is normal. Solid organs: Liver is normal in size . 1.3 cm well-circumscribed hypodensity involving left hepatic dome is seen series 2, image 10. Gallbladder is within normal limits. Biliary system is non dilated. Pancreas enhances normally. Spleen is normal in size and enhancement. No adrenal nodules. Kidneys demonstrate normal size and enhancement, without hydronephrosis. Multiple nonobstructing left renal calculi are seen measures up to 1.2 cm in lower pole of left kidney. Prominent left peripelvic renal cyst measures 4.6 cm in size is also seen. Peritoneum and bowel: There is no evidence of bowel obstruction. No gross gastric or small bowel wall thickening. There is suggestion of mild diffuse descending colon wall and distal transverse colon wall thickening. Sigmoid colon wall thickening and edema is also seen with narrowing of the lumen. No free fluid or free air. No abscess collection. Appendix is visualized and is within normal limits. Mild sigmoid diverticulosis is seen, no CT evidence of acute diverticulitis. Nodes and vessels: No retroperitoneal or mesenteric adenopathy by size criteria. Aorta and inferior vena cava are normal in size. Miscellaneous: No ventral hernias. PELVIS: Genitourinary: Mild diffuse bladder wall thickening is seen, no discrete bladder wall lesion. Miscellaneous: No inguinal hernias or adenopathy. Bones: No suspicious bony lesions. No vertebral body compression fractures. IMPRESSION: 1. Finding is suggestive of left-sided colitis. No abscess collection. No free fluid or free air. Normal appendix. Mild sigmoid diverticulosis without evidence of acute diverticulitis. 2. Multiple left-sided nonobstructing renal calculi and prominent left peripelvic renal cyst as above. No obstructing renal stone or hydronephrosis. Mild diffuse bladder wall thickening which may be due to under distension. Low-grade cystitis cannot be excluded. 3. Possible small cyst in left hepatic dome as above. Dictated by: Ab Whiting M.D. on 10/12/2020 at 11:41 Approved by: bA Whiting M.D. on 10/12/2020 at 11:45
[2020-10-12 12:05] LABS: Bacteria Urine None Seen; WBC Urine None Seen (0-5/HPF)
[2020-10-12 12:10] LABS: Culture Indicated Urine Cult Not Indicated; RBC Urine 1-5/HPF (0-5/HPF)
--- NOTE | 2020-10-12 14:38 | CM.DPNOTE ---
Addendum entered by Neelima Trinidad 10/12/20 15:08: Sent the Face to Face down to Med Records because I do not have access to pt. chart to scan. Original Note: Faxed clinicals, fs and face to face per Consuelo to [facility] [phone]. Received Fax Confirmation. Also, called Yari at [facility] to provide service advocate contact phone number Constance Robin, granddaughter, . Neelima Trinidad Cm Asst.
== END 2020-10-12 14:16 | disposition home or self-care (01) ==
PROVIDERS: Emergency Provider Emergency Medicine; PCP Student in an Organized Health Care Education/Training Program
DX: K52.9 Noninfective gastroenteritis and colitis, unspecified (principal); R07.9 Chest pain, unspecified
CPT/HCPCS: 36415; 74177; 80053; 81003; 81015; 82550; 83690; 84484; 85025; 93005; 93010; 99284

== ENCOUNTER 2021-02-11 14:44 | Emergency (ER) | payer MEDICARE, OTHER, SELFPAY ==
[2021-02-11 14:45] VITALS: BP 134/81; PULSE 81; RESP 20; TEMP 36.7; O2SAT 100; BMI 25.1
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
== END 2021-02-11 16:16 | disposition home or self-care (01) ==
PROVIDERS: Emergency Provider Physician Assistant; PCP Student in an Organized Health Care Education/Training Program
DX: T76.11XA Adult physical abuse, suspected, initial encounter (principal)
CPT/HCPCS: 99281; 99282

== ENCOUNTER → 2021-09-21 17:01 | Outpatient (CLI) | payer MEDICARE, OTHER, SELFPAY ==
[2021-09-21 17:31] LABS: Add Manual Diff / Slide Review NO; Basophils Absolute Auto 0 /uL (0-100); Basophils Percent Auto 0.7 % (0-2); Eosinophils Absolute Auto 300 /uL (0-450); Eosinophils Percent Auto 4.2 % (2-4); Hemoglobin 14.3 g/dL (13.5-17.5); Lymphocytes Absolute Auto 2200 /uL (1100-4500); Lymphocytes Percent Auto 34.9 % (25-40); Mean Corpuscular HGB Conc 34.1 % (30-36); Mean Corpuscular Hemoglobin 31.7 PG (26-34); Mean Corpuscular Volume 92.7 fL (80-100); Monocytes Absolute Auto 400 /uL (0-900); Monocytes Percent Auto 6.7 % (3-14); Neutrophils Absolute Auto 3300 /uL (1500-7000); Neutrophils Percent Auto 53.5 % (50-75); Platelet Count 170 X10^3/uL (150-400); Red Blood Cell Count 4.53 X10^6/uL (4.5-5.9); Red Cell Distribution Width 13.1 % (11.6-14.8); White Blood Cell Count 6.2 X10^3/uL (4.5-11.0)
[2021-09-21 17:45] LABS: Hemoglobin A1C% w Est Avg Glu 7.9 % (4.0-6.0)
[2021-09-21 18:08] LABS: Alanine Aminotransferase 17 IU/L (<50); Albumin 4.4 g/dL (3.5-5.0); Albumin Globulin Ratio 1.5 (1.0-2.8); Alkaline Phosphatase 36 U/L (38-126); Aspartate Aminotransferase 36 IU/L (17-59); BUN Creatinine Ratio 14.1 (6-22); Bilirubin Total 0.9 mg/dL (0.2-1.3); Blood Urea Nitrogen 13 mg/dL (9-20); Calcium 9.4 mg/dL (8.4-10.2); Carbon Dioxide 30 mmol/L (22-32); Chloride 104 mmol/L (98-107); Estimated Glomerular Filt Rate > 60.0 mL/min (>60); Globulin 2.9 g/dL (1.7-4.1); Glucose 158 mg/dL (80-110); HEMOLYSIS < 15 (0-50); Sodium 140 mmol/L (137-145); Total Protein 7.3 g/dL (6.3-8.2)
[2021-09-21 18:39] LABS: TSH w/ Reflex to FT4 2.17 uIU/mL (0.47-4.68)
[2021-09-21 18:57] LABS: Vitamin B12 < 159 pg/mL (239-931)
[2021-09-21 19:01] LABS: Vitamin D 25 Hydroxy (D3) 37.3 ng/mL (30.0-100.0)
== END ==
PROVIDERS: PCP Student in an Organized Health Care Education/Training Program; Referring Provider Student in an Organized Health Care Education/Training Program; Visit Provider Student in an Organized Health Care Education/Training Program
DX: E11.9 Type 2 diabetes mellitus without complications (principal); I10 Essential (primary) hypertension; R41.82 Altered mental status, unspecified; I63.9 Cerebral infarction, unspecified
CPT/HCPCS: 36415; 80053; 82306; 82607; 83036; 84443; 85025

== ENCOUNTER 2021-11-09 12:28 | Emergency (ER) | payer MEDICARE, OTHER, SELFPAY ==
[2021-11-09 12:32] VITALS: BP 133/77; PULSE 368; RESP 16; TEMP 36.4; O2SAT 100; BMI 28.3
[2021-11-09] MEDS: FLUORESCEIN 1 MG STRIP EYE-RIGHT (13:09)
[2021-11-09] MEDS: PROPARACAINE 0.5% OPHTH SOL 1 DROPS EYE-RIGHT (13:10)
--- NOTE | 2021-11-09 20:03 | ED_ITS ---
HPI - Eye Problem General Chief complaint: Eye Problems Stated complaint: RIGHT EYE SWELLING RED STROKE PATIENT Time Seen by Provider: 11/09/21 12:49 Source: patient and family Mode of arrival: Ambulatory History of Present Illness HPI Narrative: 86-year-old male daily smoker with history of stroke and diabetes as well as prior glaucoma surgery is on anticoagulation and presents with multiple family members for evaluation of his eye. He denies any pain or change in vision. He denies other symptoms such as dizziness, weakness or lightheadedness. He states that he rubbed his eye a little bit earlier in even know there was a problem until a family member noted blood in his eye. They attempted to see the walk-in clinic but after reviewing his medical history was sent to the emergency department for evaluation. He denies any pain, scratching, foreign body sensation Related Data Home Medications Medication Instructions Recorded Confirmed folic acid 1 mg tablet 1 mg PO DAILY 03/15/19 09/21/21 Previous Rx's Medication Instructions Recorded lisinopril 2.5 mg tablet 2.5 mg PO DAILY #90 tab 02/22/21 lovastatin 20 mg tablet 20 mg PO BEDTIME #90 tab 02/23/21 metoprolol succinate 50 mg 50 mg PO DAILY #180 tab 04/06/21 tablet,extended release 24 hr dabigatran etexilate 150 mg 150 mg PO BID #180 cap 04/22/21 capsule (Pradaxa) metaxalone 400 mg tablet 200 mg PO TID PRN #135 tab 04/22/21 metformin 1,000 mg tablet 1,000 mg PO BID #180 tab 09/09/21 glipizide 2.5 mg tablet, extended 2.5 mg PO DAILY #30 tab 09/22/21 release 24 hr Allergies Allergy/AdvReac Type Severity Reaction Status Date / Time No Known Drug Allergies Allergy Verified 09/21/21 16:33 Review of Systems Review of Systems Narrative: GENERAL: Denies chills, fatigue, malaise, fever, sweats. HEENT: See HPI RESPIRATORY: Denies dyspnea, cough, wheezing, hemoptysis, sputum. CARDIOVASCULAR: Denies chest pain, palpitations, orthopnea, edema, GASTROINTESTINAL: Denies nausea, vomiting, abdominal pain, diarrhea, constipation, melena. : Denies dysuria, frequency, incontinence, hematuria, urinary retention. MUSCULOSKELETAL: denies weakness, joint pain, or bony pain SKIN: Denies rash, skin lesions, or other NEUROLOGIC: Denies weakness, headache, numbness, change in speech, confusion, seizures, incoordination. PSYCHIATRIC: No concerning psychosocial issues. 12 point review of systems is negative except for those stated above Patient History Medical History Cataracts, bilateral (Unknown) Chronic atrial fibrillation (11/01/16) CVA (cerebral vascular accident) Essential hypertension (07/18/16) Hearing loss (Unknown) Type 2 diabetes mellitus without complication, without long-term current use of insulin (02/09/17) Surgical History No history of previous surgery Family History Mother No problems noted. Social History household members: family Smoking Status: Current every day smoker Smoking Status: Current every day smoker alcohol intake frequency: 0-2 drinks per day Substance Use Type: does not use Exam Narrative Exam Narrative: GEN: AOx3 and in mild distress EYES: Pupils are equal, round, and reactive to light and accommodation. Extraoccular muscles are intact bilaterally. No hyphema, no blurred or double vision, there is a moderate subconjunctival hemorrhage noted in the right eye. This is viewed under Wood's lamp with fluorescein and there is no dye uptake, no evidence of foreign body or corneal abrasion that would require antibiotics CHEST: Lungs are clear to auscultation bilaterally and free of wheezes, rales, or rhonchi. Heart rate is regular rhythm, there are no murmurs, clicks, rubs, or gallops. There is no chest wall tenderness. ABD: Abdomen is soft and nontender. There is no guarding or rebound. Bowel sounds are normal in all 4 quadrants. There is no mass or organomegaly. EXT: Full painless ROM of all extremities with no loss of sensation or strength. SKIN: Warm, pink, and dry. No erythema or rash Initial Vital Signs Initial Vital Signs: Vital Signs Temperature 97.5 F L 11/09/21 12:32 Pulse Rate 368 H 11/09/21 12:32 Respiratory Rate 16 11/09/21 12:32 Blood Pressure 133/77 11/09/21 12:32 Pulse Oximetry 100 11/09/21 12:32 Course Orders Ordered: Discontinued Medications Fluorescein Sodium (Fluorescein 1 Mg Strip) 1 mg EYE-RIGHT NOW ONE Stop: 11/09/21 12:50 Last Admin: 11/09/21 13:09 Dose: 1 mg Documented by: SCOTT Proparacaine HCl (Proparacaine 0.5% Ophth Lisa) 1 drops EYE-RIGHT NOW ONE Stop: 11/09/21 12:50 Last Admin: 11/09/21 13:10 Dose: 1 drop Documented by: SCOTT Vital Signs Vital signs: Vital Signs - 8 hr 11/09/21 12:32 Temperature 97.5 F L Pulse Rate 368 H Respiratory Rate 16 Blood Pressure 133/77 Pulse Oximetry 100 MDM - Eye Problem MDM Narrative Medical decision making narrative: Patient has a very reassuring history and physical exam, he has a painless subconjunctival hemorrhage in the absence of any visual changes. There is no evidence of hyphema, it likely started when he was rubbing his eye. It is not worsened over the course of the day. There is no evidence of abrasion, laceration or other ocular emergency. Patient has an established relationship with an eye doctor in [facility]. He is given extensive return precautions and questions have been answered to his apparent satisfaction Discharge Plan Departure Patient Disposition: Home Clinical Impression: Non-traumatic subconjunctival hemorrhage Activity Restrictions/Additional Instructions: *You have been diagnosed with [atraumatic sub conjunctiva hemorrhage right eye. You have a very reassuring history and physical exam without any change in your vision. *What to do: *Please continue to take your regular medications as directed. [ ] New medication prescriptions sent to your pharmacy: [ ] [ ] New medication written as a paper prescription [ ] No new medications given *Please follow up with your primary eye doctor in the next few days, call today for an appointment. Let them know you were seen in the Emergency Department and that we ask that you be seen in follow up. *Return to Emergency Department if you should have any new, worsening or concerning symptoms, such as eye pain, vision change or other bothersome symptoms Prescriptions: No Action lisinopril 2.5 mg tablet 2.5 mg PO DAILY Qty: 90 3RF lovastatin 20 mg tablet 20 mg PO BEDTIME Qty: 90 3RF metoprolol succinate 50 mg tablet extended release 24 hr 50 mg PO DAILY Qty: 180 3RF metformin 1,000 mg tablet 1,000 mg PO BID Qty: 180 0RF Rx Instructions: Take with food /PT WILL NEED TO BE SEEN BEFORE NEXT FILL 09/09/21 glipizide 2.5 mg tablet extended release 24 hr 2.5 mg PO DAILY Qty: 30 0RF Pradaxa 150 mg capsule 150 mg PO BID Qty: 180 3RF metaxalone 400 mg tablet 200 mg PO TID PRN (Reason: pain) Qty: 135 3RF Rx Instructions: Take 1/2 tablet by mouth as needed for pain, take other half if ineffective folic acid 1 MG tablet 1 mg PO DAILY 0RF Referrals: Luis Woodard MD [Primary Care Provider] - Wagner Sawyer MD [Physician] -
== END 2021-11-09 13:11 | disposition home or self-care (01) ==
PROVIDERS: Emergency Provider Emergency Medicine; PCP Student in an Organized Health Care Education/Training Program
DX: H11.31 Conjunctival hemorrhage, right eye (principal)
CPT/HCPCS: 99282